=== PATIENT | female | born 1930 | race Caucasian/White ===

== ENCOUNTER → 2017-04-29 | Outpatient (CLI) | payer MEDICARE, BC ==
[~2017-04-29] MED LIST: CALCIUM + D3 E1 EACH PO; CELEBREX 200 M200 M1 PO; CEPHALEXIN 500500 M3 PO; CRESTOR10 MG PO; D3 + K2 DOTS 11 EACH PO; DILTIAZEM 24HR180 M3 PO; ELIQUIS2.5 MG PO; ESTRADIOL 1 MG T1 M1 PO; FISH OIL 1,001000 M2 PO; FOLBIC RF TABL1 EACH PO; LASIX 20 MG TAB20 MG PO; LEVOTHYROXINE 0.1 MG PO; LISINOPRIL10 MG PO; METFORMIN HCL500 MG PO; METOPROLOL SUCC25 M1 PO; PRILOSEC OTC20 MG PO
== END ==
LOC: M.RAD 09:33
DX: J15.8 Pneumonia due to other specified bacteria (principal); M47.894 Other spondylosis, thoracic region; J98.11 Atelectasis

== ENCOUNTER 2019-01-29 12:04 | Inpatient (IN) | payer MEDICARE, BC ==
[~2019-01-29] VITALS: Ht 170.2 cm; Wt 96.4 kg
[~2019-01-29 12:04] MED LIST changes: -LEVOTHYROXINE 0.1 MG PO; +SYNTHROID100 MC1 PO
[2019-01-29 12:05] VITALS: BP 136/79
[2019-01-29 12:38] LABS: ANION GAP 7 mmol/L (7-16); BUN 24 mg/dL (7-18); CALCIUM 8.9 mg/dL (8.5-10.1); CHLORIDE 101 mmol/L (98-107); CO2 29 mmol/L (21-32); GLUCOSE 224 mg/dL (70-99); POTASSIUM 4.1 mmol/L (3.5-5.1); SODIUM 137 mmol/L (136-145)
[2019-01-29 12:39] LABS: HEMATOCRIT 39.1 % (37.0-47.0); INR 1.1; MCH 31.3 pg (26.0-34.0); MCHC 33.2 g/dL (28.0-37.0); MCV 94.1 fL (80.0-100.0); NUCLEATED RBCS 0 /100WBC; PLATELET COUNT* 263 thou/uL (150-400); RBC 4.16 mil/uL (4.20-5.00); RDW-CV 13.4 % (10.5-14.5); WBC 13.3 thou/uL (4.0-11.0)
[2019-01-29 12:48] LABS: ALBUMIN 3.2 g/dL (3.4-5.0); ALKALINE PHOSPHATASE 141 U/L (46-116); NT-PRO BRAIN NAT PEPTIDE 1585 pg/mL (<300); SGOT 223 U/L (15-37); SGPT 88 U/L (30-65); TOTAL BILIRUBIN 1.9 mg/dL (<0.1-1.0); TOTAL PROTEIN 6.5 g/dL (6.4-8.2); TROPONIN-I LEVEL <0.06 ng/mL (<0.06)
[2019-01-29 14:14] LABS: LIPASE 8052 U/L (73-393)
[2019-01-29 14:28] LABS: ABSOLUTE LYMPHOCYTES 1.3 thou/uL (0.8-5.3); ATYPICAL LYMPHS 3 %; PLATELET ESTIMATE ADEQUATE
--- NOTE | 2019-01-29 16:27 | EKG ---
[place] [address] ELECTROCARDIOGRAM REPORT Name: COPEFLORY Room: [place] [address] [facility].#: [id number] Admission: 01/29/19 Attend Phys: Julia Zayas MD Discharge: Date of : [birth year] Report #: [id number] THIS REPORT FOR: //name// [facility] ED Test Date: 2019-01-29 Test Time: 12:07:17 Pat Name: FLORY COPE Department: Room: [facility] Gender: F Test Lead: EV : 1930 Requested By: Cordelia Carlton Order Number: [id number] MD: Evans Kahn Measurements Intervals [place] Rate: 79 P: WI: QRS: -26 QRSD: 111 T: 77 QT: 417 QTc: 479 Interpretive Statements Atrial fibrillation Incomplete RBBB and LAFB Low voltage, precordial leads Anteroseptal infarct, age indeterminate Nonspecific T abnormalities, lateral leads Compared to ECG 05/28/2016 15:57:24 Incomplete right bundle-branch block now present Right bundle-branch block now present Low QRS voltage now present T-wave abnormality now present Myocardial infarct finding still present Electronically Signed On 01-29-2019 16:27:40 CDT by Evans Kahn [email or web address] <ELECTRONICALLY SIGNED> By: Evans Kahn MD, [facility] 01/29/19 1627 06 06 Evans Kahn MD, [facility] /EPI
[2019-01-29 17:10] VITALS: BP 119/93
[2019-01-29 19:45] VITALS: BP 95/48
[2019-01-30] VITALS: BP 94/45
[2019-01-30] MEDS ORDERED: LIPITOR10 MG PO (00:47)
[2019-01-30] MEDS ORDERED: LUMIGAN2.5 M1 OPHTHALMIC (00:51)
[2019-01-30] MEDS ORDERED: PRESERVISION A1 EAC2 PO (00:53)
[2019-01-30 04:00] VITALS: BP 91/44
[2019-01-30 05:09] LABS: HEMATOCRIT 39.3 % (37.0-47.0); HEMOGLOBIN 12.9 gm/dL (12.0-15.0); MCH 30.9 pg (26.0-34.0); MCHC 32.7 g/dL (28.0-37.0); MCV 94.5 fL (80.0-100.0); MPV 8.7 fl. (7.2-11.1); RBC 4.16 mil/uL (4.20-5.00); WBC 20.2 thou/uL (4.0-11.0)
[2019-01-30 05:34] LABS: ALBUMIN 2.7 g/dL (3.4-5.0); CALCIUM 7.9 mg/dL (8.5-10.1); CREATININE 1.1 mg/dL (0.6-1.3); MAGNESIUM 1.6 mg/dL (1.8-2.4); TOTAL BILIRUBIN 5.3 mg/dL (<0.1-1.0)
[2019-01-30 05:54] LABS: TOTAL PROTEIN 5.7 g/dL (6.4-8.2)
--- NOTE | 2019-01-30 06:12 | NUR ---
PT SLEPT MOST OF SHIFT. ASSESSMENT DOCUMENTED. MEDS GIVEN PER E-JUN. PT ORIENTED TO SELF ONLY THIS SHIFT. IV PATENT, FLUIDS INFUSING. NO REPORTS OF PAIN THIS SHIFT. BLADDER SCANNER READING 441 POST VOID. PT HAD LARGE BM THIS SHIFT. WILL STRAIGHT CATH THIS SHIFT. WILL CONTINUE WITH PLAN OF CARE.
[2019-01-30 08:00] VITALS: BP 103/59
[2019-01-30 12:22] VITALS: BP 85/34
--- NOTE | 2019-01-30 14:03 | NUR ---
Pt out of room when CM went to assess. Spoke with Dr earlier, Pt to have MRCP and abd u/s today and an ERCP is scheduled. Surgery following. CM to f/u later
[2019-01-30 16:09] VITALS: BP 107/62
--- NOTE | 2019-01-30 18:58 | NUR ---
ASSUSSMED CARE OF PT APPROX 0730. REASSESSMENT COMPLETED CHARTED. MEDICATIONS GIVEN CHARTED. DISCUSSED CARE WITH PT, NEEDS REINFORCEMENT. PT OFF UNIT FOR MOST OF THIS SHIFT AT PROCEDURES. PT BACK TO UNIT THIS AFTERNOON. PT SLEPT FOR MOST OF THE AFTERNOON. PT AROUSED TO VOICE AND TOUCH. DISCUSSED CARE WITH PTS SON. PT UP TO BEDSIDE CAMODE WITH 2 PERSON ASSIST. SAFTEY PRECAUTIONS IN PLACE. CALL LIGHT WITHIN REACH. HOURLY ROUNED FOR PT SAFTEY.
[2019-01-30 20:50] VITALS: BP 82/40
[2019-01-31 00:18] VITALS: BP 97/56
[2019-01-31 04:29] VITALS: BP 87/50
--- NOTE | 2019-01-31 04:58 | NUR ---
PT SLEPT MOST OF SHIFT. ASSESSMENT DOCUMENTED. MEDS GIVEN PER E-MAR. IV PATENT, FLUIDS INFUSING. DR NOTIFIED OF PATIENTS BLOOD PRESSURE BEING LOW, BOLUS GIVEN. PT UP TO BSC THIS SHIFT WITH MINIMAL OUTPUT. NO REPORTS OF PAIN OR NAUSEA. PT REPOSITIONED THROUGH THE NIGHT. WILL CONTINUE WITH PLAN OF CARE.
[2019-01-31 05:06] LABS: HEMATOCRIT 34.8 % (37.0-47.0); HEMOGLOBIN 11.5 gm/dL (12.0-15.0); MCH 31.3 pg (26.0-34.0); MCHC 33.1 g/dL (28.0-37.0); MCV 94.5 fL (80.0-100.0); MPV 8.8 fl. (7.2-11.1); RBC 3.68 mil/uL (4.20-5.00); RDW-CV 14.1 % (10.5-14.5)
[2019-01-31 05:31] LABS: ALBUMIN 2.3 g/dL (3.4-5.0); CREATININE 1.4 mg/dL (0.6-1.3); MAGNESIUM 2.6 mg/dL (1.8-2.4); PHOSPHORUS* 3.4 mg/dL (2.5-4.9); POTASSIUM 3.5 mmol/L (3.5-5.1); TOTAL BILIRUBIN 4.6 mg/dL (<0.1-1.0); TOTAL PROTEIN 5.2 g/dL (6.4-8.2)
[2019-01-31 07:55] VITALS: BP 94/52
[2019-01-31 10:40] VITALS: BP 127/102
--- NOTE | 2019-01-31 10:41 | NUR ---
Pt is A&O. [place]AP[place]. Resides at home with her son. Son completes IADLs. Pt states that she has a lady that comes in to assist with bathing and grooming. Pt has a walker and cane that she uses for mobility, states that she has a wc, but does not use it. No home o2. Hx of HH. No hx of SNF. Pt scheduled to have a lap jaquelin tomorrow. Pt hopes to return home at [place]. Following.
--- NOTE | 2019-01-31 11:21 | NUR ---
ASSUMED CARE OF PATIENT THIS AM AT 0730. PATIENT IS ALERT AND ORIEMTED X 4. SHE DENIES PAIN THIS AM. TELE SHOWS AFIB. SURGERY IN TO ROUND. PLANS SURGERY IN THE AM. PT IN TO WORK WITH PATIENT. PATIENT ASSISTED UP TO THE CHAIR. PATIENT ASSISTED WITH ADLS NEEDED. WILL CONTINUE TO MONITOR.
--- NOTE | 2019-01-31 14:19 | NUR ---
I HAVE REVIEWED THE STUDENT'S CHARTING.
[2019-01-31 15:36] VITALS: BP 88/43
[2019-02-01] VITALS: BP 90/46
[2019-02-01 04:00] VITALS: BP 89/47
--- NOTE | 2019-02-01 05:46 | NUR ---
PT SLEPT MOST OF SHIFT. ASSESSMENT DOCUMENTED. MEDS GIVEN PER -JUN. IV'S PATENT, FLUIDS INFUSING. DR NOTIFIED OF PTS BLOOD PRESSURE AND INCREASING SOA. ORDERS RECIEVED. ORDERS VERIFIED. IV LASIXS AND STERIODS GIVEN WITH NO RELIEF. PT NOT VOIDING MORE THAN 50ML AT A TIME THIS SHIFT. BLADDER SCANNER READING NO MORE THAN 305 POST VOID. NO REPORTS OF PAIN OR NAUSEA THIS SHIFT. PT REMAINED NPO AFTER MIDNIGHT. WILL CONTINUE WITH PLAN OF CARE.
[2019-02-01 06:43] LABS: HEMATOCRIT 33.5 % (37.0-47.0); MCH 31.1 pg (26.0-34.0); MCV 94.4 fL (80.0-100.0); MPV 9.7 fl. (7.2-11.1); RBC 3.54 mil/uL (4.20-5.00); RDW-CV 14.3 % (10.5-14.5); WBC 13.5 thou/uL (4.0-11.0)
[2019-02-01 06:53] LABS: ALBUMIN 2.3 g/dL (3.4-5.0); CALCIUM 7.9 mg/dL (8.5-10.1); MAGNESIUM 2.6 mg/dL (1.8-2.4); TOTAL BILIRUBIN 3.2 mg/dL (<0.1-1.0); TOTAL PROTEIN 5.9 g/dL (6.4-8.2)
[2019-02-01 06:55] LABS: BE -7.9 mmol/L (-2 to +3); PCO2 44.5 mmHg (35.0-45.0); PO2 81.9 mmHg (75.0-100.0)
[2019-02-01 06:56] LABS: pH 7.249 (7.340-7.450)
[2019-02-01 07:30] VITALS: BP 121/49; BP 122/52
[2019-02-01 09:13] VITALS: BP 89/47
[2019-02-01 14:00] VITALS: BP 127/61
--- NOTE | 2019-02-01 19:17 | CON ---
[address] [address] CONSULTATION Name: FLORY COPE Room: [address] IN .R.#: [id number] Admission: 01/29/19 Attend Phys: Julia Zayas MD Discharge: Date of : [birth year] Report #: [id number] THIS REPORT FOR: //name// CC: Donald Zayas DATE OF SERVICE: 01/30/2019 HISTORY OF PRESENT ILLNESS: This is a pleasant 88-year-old female with past medical history significant for atrial fibrillation, hypertension, hypothyroidism and hyperlipidemia, who is presenting for evaluation of epigastric abdominal pain. The patient reports the abdominal pain started about 2 days back and progressively got worse, which prompted her hospital visit. The patient reports it is localized, nonradiating, associated with nausea and vomiting. The patient also reports subjective sensation of fever and chills. Although, she does report similar pain in the past, she reports it was only episodic and not this severe. PAST MEDICAL HISTORY: Atrial fibrillation, hypertension, diabetes, hyperlipidemia. PAST SURGICAL HISTORY: The patient had bilateral knee replacement, bilateral hip replacement, bladder sling surgery. SOCIAL HISTORY: The patient denies smoking, alcohol or recreational drug use. FAMILY HISTORY: No family history of colorectal cancer or Willis-related neoplasia. REVIEW OF SYSTEMS: A comprehensive 10-point review of systems is negative except for what was mentioned in the HPI. PHYSICAL EXAMINATION: VITAL SIGNS: Temperature 36.8, pulse rate 93, pulse ox 100% on room air, and blood pressure 85/34. GENERAL: The patient is alert, awake, and oriented x 3. HEENT: Pupils are equal, round, reactive to light and accommodation. Mucous membranes are moist. There is no congestion. LUNGS: Clear to auscultation bilaterally. CARDIOVASCULAR: Rate and rhythm regular, S1, S2 present. ABDOMEN: Soft. Tenderness is located in the epigastric right upper quadrant region. No guarding or rigidity. EXTREMITIES: Warm, well perfused. There is no edema. LABORATORY DATA: Hemoglobin 12.9, hematocrit 39.3, WBC count 20.2, platelet count 199. Sodium 140, potassium 4.0, chloride 106, bicarbonate 21, BUN 26, [place] [address] CONSULTATION Name: ARPIT COPEJEY Singh Room: [address] IN [facility]#: [id number] Admission: 01/29/19 Attend Phys: Julia Zayas MD Discharge: Date of : [birth year] Report #: [id number] creatinine 1.1, total bilirubin 5.3, AST 617, ALT 433, alkaline phosphatase 150, lipase 5498. ASSESSMENT AND PLAN: Pleasant 88-year-old female with history outlined above, presenting with acute pancreatitis, acute cholecystitis secondary to CBD stone and gallstone disease. I would recommend placing the patient on Zosyn at least for a week. We will proceed with ERCP and sphincterotomy, stone extraction. I would recommend increasing the patient's fluid rate to at least 200 mL per hour as her creatinine and BUN are increasing despite fluid intake and this predicts increased risk for necrotizing pancreatitis. Further recommendations will be based on the results of the ERCP. <ELECTRONICALLY SIGNED> By: Neo Hudson MD 02/01/19 1917 1251 1411Neo Hudson MD /nt
[2019-02-01 20:00] VITALS: BP 111/60
[2019-02-02 00:23] VITALS: BP 100/43
[2019-02-02 04:18] VITALS: BP 96/57
[2019-02-02 04:29] LABS: HEMATOCRIT 31.7 % (37.0-47.0); HEMOGLOBIN 10.3 gm/dL (12.0-15.0); MCH 30.9 pg (26.0-34.0); MCHC 32.5 g/dL (28.0-37.0); MCV 94.9 fL (80.0-100.0); MPV 8.8 fl. (7.2-11.1); RBC 3.34 mil/uL (4.20-5.00); RDW-CV 14.4 % (10.5-14.5); WBC 11.3 thou/uL (4.0-11.0)
[2019-02-02 04:43] LABS: ALBUMIN 1.9 g/dL (3.4-5.0); CALCIUM 7.9 mg/dL (8.5-10.1); CREATININE 2.9 mg/dL (0.6-1.3); MAGNESIUM 2.6 mg/dL (1.8-2.4); POTASSIUM 3.9 mmol/L (3.5-5.1); TOTAL BILIRUBIN 1.3 mg/dL (<0.1-1.0); TOTAL PROTEIN 5.4 g/dL (6.4-8.2)
[2019-02-02 08:00] VITALS: BP 89/47
--- NOTE | 2019-02-02 11:36 | NUR ---
Surgery yesterday, therapies to be reordered. Pt may need SNF at dc. Anticipate dc within the next few days. CM to speak with family post therapy evals to determine dc needs.
[2019-02-02 11:49] LABS: URINE BILIRUBIN NEGATIVE (Negative); URINE BLOOD 1+ (Negative); URINE CLARITY CLEAR; URINE COLOR YELLOW; URINE GLUCOSE-RANDOM NEGATIVE (Negative); URINE KETONES NEGATIVE (Negative); URINE LEUKOCYTES NEGATIVE (Negative); URINE NITRITE NEGATIVE (Negative); URINE PROTEIN TRACE (Negative); URINE UROBILINOGEN 0.2 E.U./dl (0.2-1.0)
[2019-02-02 11:59] LABS: BACTERIA 1-9 Few /HPF (None Seen); CASTS None Seen /LPF (None Seen); MUCUS None Seen strn/LPF (None Seen); SQUAMOUS NONE SEEN /LPF (0-3); URINE RBC 0-2 Rare /HPF (0-2); URINE WBC None Seen /HPF (0-5)
[2019-02-02 12:00] VITALS: BP 114/54
[2019-02-02 12:00] LABS: AMORPHOUS URATES Few /LPF (None Seen)
[2019-02-02 16:00] VITALS: BP 82/43
--- NOTE | 2019-02-02 17:57 | NUR ---
PATINET RESTING IN BED IN ROOM. BLOOD PRESSURE WAS LOWER TODAY BUT PATISANTOS WAS ASSYMPTOMATIC. NEPHRO ADDED ALBUMIN TO HER MAR. CLOSE ASSESSMENT OF KIDNEY FUNCTION. POLLARD TO DRAIN WITH AVERAGE OUTPUT OF 100 ML/HR. HOURLY ROUNDING COMPLETED FOR PATIET SAFETY.
[2019-02-02 19:40] VITALS: BP 126/61
[2019-02-03] VITALS: BP 141/70
[2019-02-03 04:00] VITALS: BP 136/82
[2019-02-03 04:18] LABS: HEMATOCRIT 31.4 % (37.0-47.0); HEMOGLOBIN 10.5 gm/dL (12.0-15.0); MCH 31.3 pg (26.0-34.0); MCHC 33.3 g/dL (28.0-37.0); MCV 93.7 fL (80.0-100.0); MPV 8.3 fl. (7.2-11.1); RBC 3.35 mil/uL (4.20-5.00); RDW-CV 14.5 % (10.5-14.5)
[2019-02-03 04:26] LABS: ALBUMIN 2.2 g/dL (3.4-5.0); CALCIUM 7.4 mg/dL (8.5-10.1); CREATININE 3.8 mg/dL (0.6-1.3); MAGNESIUM 2.6 mg/dL (1.8-2.4); POTASSIUM 4.1 mmol/L (3.5-5.1); TOTAL BILIRUBIN 1.2 mg/dL (<0.1-1.0); TOTAL PROTEIN 5.4 g/dL (6.4-8.2)
--- NOTE | 2019-02-03 06:52 | NUR ---
NO ACUTE CHANGES DURING SHIFT. PT REMAINS ON O2 WITH CONTINUOUS SAT MONITOR. PT GIVEN 10 MG OXYCODONE X1 DURING SHIFT FOR REPORT OF INCISION PAIN. VITAL SIGNS WITHIN NORMAL LIMITS THROUGHOUT NIGHT, WILL CONTINUE PLAN OF CARE.
[2019-02-03 08:00] VITALS: BP 106/53
--- NOTE | 2019-02-03 09:53 | OP ---
[address] [address] OPERATIVE REPORT Name: FLORY COPE Room: [address] IN .R.#: [id number] Admission: 01/29/19 Attend Phys: Julia Zayas MD Discharge: Date of : [birth year]/15[birth year] Report #: [id number] THIS REPORT FOR: //name// CC: Donald Zayas DATE OF SERVICE: 02/01/2019 PREOPERATIVE DIAGNOSES: Acute cholecystitis with cholelithiasis with obstruction, status post ERCP with a stent. POSTOPERATIVE DIAGNOSES: Acute cholecystitis with cholelithiasis with obstruction, status post ERCP with a stent with mesh at the midline and diffuse abdominal adhesions. FINDINGS: The patient had an old midline incision which she could not tell us the purpose of. There was a question of whether she had had a previous mesh placed. We did identify mesh at the midline incision. There were adhesions extending from the falciform to the pelvis and from the right to the left gutter. Gallbladder itself was quite distended with stones and multiple dense overlying adhesions. SURGEON: Jenna Mueller DO COSURGEON: Eleuterio Quintero, PGY-3 MOLDING PROCESS TECHNICIAN: MS Apryl3 PROCEDURE PERFORMED: Laparoscopic cholecystectomy converted to open with lysis of adhesions greater than 30 minutes. ANESTHESIA: General endotracheal and local. ESTIMATED BLOOD LOSS: 100 mL. DRAINS: 15-Barbadian JARET drain in the right upper quadrant and a Garrido catheter. SPECIMENS: Gallbladder. COMPLICATIONS: None. CONDITION: Stable. DISPOSITION: PACU to the floor. HISTORY OF PRESENT ILLNESS: The patient is a very pleasant 88[place] [address] OPERATIVE REPORT Name: BRANT COPEJarret Singh Room: [address] IN [facility]#: [id number] Admission: 01/29/19 Attend Phys: Julia Zayas MD Discharge: Date of : [birth year]/15/[birth year] Report #: [id number] who is fairly severely demented, who presented to the ER with a complaint of abdominal pain, nausea, and vomiting. She was found to have an elevated white count and severely elevated liver enzymes. CT scan and ultrasound completed in the ER indicated acute cholecystitis with cholelithiasis and choledocholithiasis. MRCP confirmed the common bile duct stones. She was then taken to the operating room with Dr. Hudson for an ERCP with stone removal and stent placement. Unfortunately, he was unable to remove all of the stones, but again the stent was placed with good bile flow. Her blood work did improve. She was then consented for surgery for removal of the gallbladder. Again, she is somewhat demented, so we did discuss the surgery with her and with her son who agreed to proceed. Risks of the surgery were discussed include bleeding, infection, pain, scar formation, injury to bowel, liver or bile duct, hernia at the incision sites, need for an open procedure, and risks of general anesthesia. Again, the patient has a midline incision which she could not tell us the history of. So, we did stress that she may need an open procedure. The patient and son understood these risks and elected to proceed. DESCRIPTION OF PROCEDURE: The patient was brought to the operating room. She was laid supine on the operating room table. SCDs were placed on bilateral lower extremities. The patient was already on Zosyn in the perioperative period. General endotracheal anesthesia was induced by Anesthesia without difficulty. Garrido catheter was placed utilizing sterile technique by nursing staff. Abdomen was prepped and draped in a standard sterile fashion. Timeout was performed to verify the patient and procedure. A 10 mL of 0.5% Marcaine were injected in the very superior edge of her old midline incision. Old midline incision was opened with 11 blade. Cautery was used for hemostasis. S retractors were used to visualize fascia. Fascia was grasped and elevated between 2 Kochers. Fascia was incised using cautery. At this point, the upper edge of the mesh could be visualized, but again we were just at the upper edge of it, so I was able to sneak past the upper edge and puncture through the peritoneum using a Eloisa clamp. Finger was introduced into the abdomen to assure that there were no maira-incisional adhesions. Unfortunately, we identified multiple dense adhesions in all directions. The Pratibha trocar was introduced and we did attempt to insufflate and camera was introduced, but no plane could be identified. At this point, it was decided to move to an open procedure. The fascial edges of this incision were marked using 2 stitches of 0 Vicryl with Eloisa clamps, and we then turned our attention to the right upper quadrant. 10 mL of 0.5% Marcaine were injected in the area of planned incision. A Priscilla incision was then made with a 10 blade. Cautery was used for hemostasis. Cautery was then used to dissect down through the fatty tissues. Cautery was then used to incise the anterior fascia. Muscle fibers were then gently transected utilizing the cautery. Posterior fascia and peritoneum were then also transected using the cautery. Multiple dense adhesions were then again encountered in the abdomen. These were able to be mobilized inferiorly. The patient was placed head up and tilted left side down. Liver edge was finally able to be visualized and was gently elevated. Colon was adherent up [facility] [address] [place] [address] OPERATIVE REPORT Name: FLORY COPE Room: [address] IN M.R.#: [id number] Admission: 01/29/19 Attend Phys: Julia Zayas MD Discharge: Date of : [birth year]/15/[birth year] Report #: [id number] over the edge of the gallbladder. It was gently mobilized down towards the pelvis and then we were finally able to visualize the gallbladder. Gallbladder was gently elevated, and the adhesions between the gallbladder and the colon were gently lysed using a combination of blunt and cautery dissection until we reached the triangle of Calot. Cholecystectomy was then performed in a dome down fashion. Gentle retraction was placed on the gallbladder. Wall cautery was used to transect the gallbladder from the liver bed. The liver was quite friable and did easily bleed, but we were able to proceed without issue. Once we reached the triangle of Calot, Calot node was easily identified. Small blood vessels going to Calot node was doubly clipped and ligated. The node was gently mobilized towards the duodenum. Cystic duct and cystic artery were then both easily visualized. They were both circumferentially dissected free using a Eloisa clamp. Both were then doubly ligated using a 0 silk suture and they were transected using Metzenbaums. Specimen was then handed off. Liver bed and right upper quadrant was then copiously irrigated until clear. Liver bed was inspected and appeared to be hemostatic. Our duct and artery also appeared to be hemostatic. There was no bleeding or leakage from the area of our 0 silk sutures. We did have an area just lateral where there was a small tear in the liver. This was controlled with cautery and a small piece of Surgicel. A 15-Barbadian JARET drain was then brought onto the field and was brought out of the right upper quadrant and laid in the Morison pouch and in the liver bed. The patient was then returned to supine. Any remaining fluid in the right upper quadrant was suctioned away. Her abdomen was then closed in multiple layers. Peritoneum was closed using a running 3-0 Vicryl. Anterior fascia was closed using a running 2-0 PDS. Subcutaneous tissues were closed in a layered fashion using deep and superficial stitches of 3-0 Vicryl in inverted interrupted fashion. Skin wound was closed with jose. Drain was sutured into place using a 3-0 nylon. We returned our attention to our Pratibha port. Our previously placed 0 Vicryl stitches were tied. One additional 0 Vicryl stitch was placed in between these 2 stitches with excellent approximation of the fascia. This wound was then also closed in a layered fashion using deep and superficial stitches of 3-0 Vicryl in inverted interrupted fashion. Skin wound was closed with jose. All wounds were then cleansed and covered. A total of 30 mL of 0.5% Marcaine were used to anesthetize the wounds. Dressings consisted of 4 x 4's, ABDs, Medipore tape, and a Tegaderm over the drain site. The patient was then allowed to awake from anesthesia and was extubated and transported to the recovery room with no further difficulties. Counts were correct x 2 at the conclusion of the case. Abdominal binder was placed in the OR. <ELECTRONICALLY SIGNED> By: Jenna Mueller DO 02/03/19 0953 1316 [id number] Mueller DO /nt
[2019-02-03 16:00] VITALS: BP 101/48
--- NOTE | 2019-02-03 17:52 | NUR ---
PT VSS, AFIB ON TELE, ORIENTED TO SELF WITH BASELINE CONFUSION, PT HARD OF HEARING, PT IS HIGH FALL RISK, POSSESSIONS AND CALL LIGHT WITHIN REACH. HOURLY ROUNDING PERFORMED. NC@2L.
[2019-02-03 20:42] VITALS: BP 93/45
[2019-02-03 23:41] VITALS: BP 101/52
[2019-02-04 04:00] VITALS: BP 106/44
[2019-02-04 04:25] LABS: HEMATOCRIT 30.1 % (37.0-47.0); HEMOGLOBIN 10.1 gm/dL (12.0-15.0); MCH 31.7 pg (26.0-34.0); MCHC 33.5 g/dL (28.0-37.0); MCV 94.4 fL (80.0-100.0); MPV 8.1 fl. (7.2-11.1); RBC 3.18 mil/uL (4.20-5.00); RDW-CV 14.5 % (10.5-14.5); WBC 10.8 thou/uL (4.0-11.0)
--- NOTE | 2019-02-04 04:30 | NUR ---
ASSUMED CARE OF PT 02/03/19 APPROX 1969, PT A&OX2, VSS, PT ON 2L NC, AFIB ON MONITOR, ASSESSMENTS AND HOURLY ROUNDINGS COMPLETED, PT TURNED Q2HR, ABD INCISIONS WITH STABLES INTACT WITH DRESSINGS C/D/I, NO PAIN REPORTED. WILL CONTINUE TO MONITOR.
[2019-02-04 04:55] LABS: ALBUMIN 2.6 g/dL (3.4-5.0); CALCIUM 8.1 mg/dL (8.5-10.1); MAGNESIUM 2.6 mg/dL (1.8-2.4); PHOSPHORUS* 6.5 mg/dL (2.5-4.9); POTASSIUM 4.8 mmol/L (3.5-5.1); TOTAL BILIRUBIN 0.9 mg/dL (<0.1-1.0); TOTAL PROTEIN 5.8 g/dL (6.4-8.2)
[2019-02-04 08:00] VITALS: BP 103/53
[2019-02-04 12:44] VITALS: BP 98/46
[2019-02-04 17:08] VITALS: BP 111/57
[2019-02-04 19:19] LABS: COMPLEMENT-C4 25 mg/dL (14-44)
[2019-02-04 20:42] VITALS: BP 121/52
--- NOTE | 2019-02-04 21:57 | NUR ---
PT ORIENTED TO SELF AND LOCATION. AFIB ON TELE MONITOR, PT IS IMMOBILE AND A Q2H TURN PT. PT IS TOTAL FEED, PT HAS GENERALIZED NON PITTING EDEMA ON UPPER EXTREMITIES. DR ADAME WAS CONCERNED IN THE AM ABOUT RENAL FUNCTION DUE TO LOW URINE OUTPUT AND ELEVATED BUN AND CREATININE LEVELS. DR ASKED RN TO CONTACT DPOA TO INQUIRE ABOUT POTENTIAL NECESSITY TO PERFORM DIALYSIS AND TO OBTAIN CONSENT IF IT WAS THEIR WISH. INFORMED DR ROGERS WHO TALKED TO DPOA AND DPOA GAVE CONSENT. PT LEVEL OF CONFUSION REMAINED CONSTANT THROUGHOUT THE DAY AND DID NOT WORSEN. DR. ADAME CALLED AROUND 6 PM TO INQUIRE ABOUT PT. INFORMED DR OF INTAKE, OUTPUT AND LEVEL OF CONFUSION. HOURLY ROUNDING PERFORMED. POSSESSION AND CALL LIGHT WITHIN REACH. CHECKED ON PT FREQUENTLY.
[2019-02-05] VITALS: BP 112/47
[2019-02-05 04:00] VITALS: BP 102/46
--- NOTE | 2019-02-05 04:42 | NUR ---
ASSUMED CARE OF PT 02/04/19 AT APPROX 1930, PT ORIENTED TO SELF ONLY, ON 2L NC WITH EXPIRATORY WHEEZES, PT TURNED Q2HR, FALL PRECAUTIONS MAINTAINED, ASSESSMENTS COMPLETED WITH NO ACUTE DECLINE IN CONDITION OVER THE SHIFT, URINE OUTPUT REMAINS VERY LOW SEE PCI, AM LAB PENDING, PER NEPHROLOGY NOTE - THEY WILL REASSESS TODAY FOR KIDNEY FX AND CHANGES IN PLAN OF CARE. WILL CONTINUE TO MONITOR.
[2019-02-05 04:58] LABS: CREATININE 5.8 mg/dL (0.6-1.3); POTASSIUM 5.2 mmol/L (3.5-5.1)
--- NOTE | 2019-02-05 07:01 | NUR ---
NOTIFIED NEPHROLOGY OF PT OVERNIGHT STATUS: URINE OUTPUT, INCREASED WHEEZING, INCREASE BUN AND LABORER GOLD LEAF. ORDERS RECEIVED. MESSAGE TO HOSPITALIST WITH UPDATES WELL, CALL BACK PENDING.
[2019-02-05 08:00] VITALS: BP 114/55
[2019-02-05 09:47] VITALS: BP 114/55
--- NOTE | 2019-02-05 15:26 | NUR ---
ASSUMED PT CARE REPORT RECEIVED FROM NURSE. PT IS AOX1 TO SELF. CONFUSED. VSS. ON 2 LNC. POLLARD PATENT. Q2 TURN. IR CONSULTED FOR TEMPORARY DIALYSIS LINE PLACEMENT. CONSENT FOR LINE PLACEMENT RECEIVED FROM PT'S SON TRENT.IV R IF LINE WAS PLACED IN. PT HAS POOR APPETITE AND DID NOT EAT LUNCH AT ALL. NO INSULIN GIVEN. HD NURSE CALLED AND STATES SHE WILL BE READY FOR PT AT 1700. WILL CONTINUE TO MONITOR PT
--- NOTE | 2019-02-05 15:44 | NUR ---
SW spoke with Dr Muniz about dc planning; pt not medically ready today, needing dialysis, dc planning for SNF. SW to continue to follow to discuss with family for preferences and send referrals as needed.
[2019-02-05 16:00] VITALS: BP 125/57
--- NOTE | 2019-02-05 19:18 | NUR ---
NEVER HEARD FROM DIALYSIS NURSE. DIALYSIS NURSE CALLED NO ANSWER. SAFETY IN PLACE. REPORT GIVEN TO NIGHT NURSE
[2019-02-05 20:00] VITALS: BP 107/49
[2019-02-06] VITALS: BP 103/58
[2019-02-06 04:00] VITALS: BP 139/69
[2019-02-06 05:06] LABS: HEMATOCRIT 31.5 % (37.0-47.0); HEMOGLOBIN 10.4 gm/dL (12.0-15.0); MCH 30.9 pg (26.0-34.0); MCV 93.5 fL (80.0-100.0); MPV 8.4 fl. (7.2-11.1); NUCLEATED RBCS 0 /100WBC; PLATELET COUNT* 175 thou/uL (150-400); RBC 3.37 mil/uL (4.20-5.00); RDW-CV 14.4 % (10.5-14.5); WBC 15.7 thou/uL (4.0-11.0)
[2019-02-06 05:18] LABS: ALBUMIN 2.6 g/dL (3.4-5.0); CALCIUM 8.2 mg/dL (8.5-10.1); CREATININE 5.4 mg/dL (0.6-1.3); PHOSPHORUS* 6.9 mg/dL (2.5-4.9); POTASSIUM 4.9 mmol/L (3.5-5.1)
[2019-02-06 05:27] LABS: CALCIUM 8.2 mg/dL (8.5-10.1); CREATININE 5.3 mg/dL (0.6-1.3); MAGNESIUM 2.4 mg/dL (1.8-2.4)
[2019-02-06 05:43] LABS: ABSOLUTE LYMPHOCYTES 0.6 thou/uL (0.8-5.3); ABSOLUTE MONOCYTES 0.2 thou/uL (0.0-1.2); ABSOLUTE NEUTROPHILS 14.9 thou/uL (1.6-8.1); ANISOCYTOSIS 1+; PLATELET ESTIMATE ADEQUATE; POIKILOCYTOSIS 1+
--- NOTE | 2019-02-06 06:08 | NUR ---
RECEIVED REPORT AND ASSUMED CARE AT 1900. VSS. CARDIAC MONITORING IN PLACE. ASSESSMENT COMPLETED CHARTED. PT TO DIALYSIS 750ML TAKEN OFF/ RETUNRED TO ROOM, BATH COMPLETED. DRESSING TO JARET DRAIN CHANGED. BED LOCKED IN LOWEST POSITION, CALL LIGHT WIHTIN REACH, BED ALARM ON. POSITION CHANGED EVERY TWO HOURS, HEELS OFF LOADED. HOURLY ROUNDING COMPLETED AND ALL NEEDS MET.
[2019-02-06 07:08] LABS: GLOBULIN TOTAL 2.6 g/dL (2.2-3.9); M-SPIKE Not Observed g/dL (Not Observed)
[2019-02-06 08:00] VITALS: BP 127/54
--- NOTE | 2019-02-06 11:29 | NUR ---
ASSUMED PT CARE REPORT RECEIVED FROM NURSE. PT IS AOX1 HARD OF HEARING. ON 4 L NC. VSS. PATIENT WORKED WITH OCCUPATIONAL THERAPIST IN ROOM. POOR APPETITE. ACCUCHECK. INSULIN GIVEN. PROTONIX NOT GIVEN YET DUE TO UNAVAILABILITY. PT LEFT FLOOR AT 0930 AM TO GO TO HEMODIALYSIS. PT DENIES PAIN. SCDS IN PLACE. JARET DRAIN AND POLLARD PATENT. RIGHT IJ IS PATENT. WILL CONTINUE TO MONITOR PT.
--- NOTE | 2019-02-06 12:06 | PATH ---
[address] [address] PATHOLOGY RPT PROCEDURE Name: FLORY COPE Room: [address] IN [facility]#: [id number] Admission: 01/29/19 Date of : [birth year] Discharge: Report #: [id number] Path Case #: [id number] [facility] Accession Number: [id number] . 01 Material submitted: . gallbladder - GALLBLADDER . 01 Clinical history: . Chronic cholecystitis, cholelithiasis . 02 Diagnosis: Gallbladder: - Severe chronic and acute cholecystitis with associated epithelial atypia, cholelithiasis, scant attached benign liver tissue, and with benign sentinel lymph node. (MARCUS:nataliya; 02/05/2019) MBR 02/05/2019 1736 Local . 02 Electronically signed: . Ranjan Devine MD, Pathologist NPI- [id number] . 01 Gross description: . Received in formalin labeled "Flory Cope, gallbladder," is an intact gallbladder measuring 9.1 x 5.1 x 4.2 cm in greatest dimensions. The serosal surface is largely edematous and dusky walters-harris in appearance, appearing partially disrupted with scant attached yellow adipose tissue. The suspected hepatic surface is inked black. A harris-brown possible lymph node is noted near the infundibulum, measuring 0.8 x 0.6 x 0.5 cm in greatest dimensions. Opening the specimen reveals a shaggy, dark green mucosa measuring 0.1 cm in thickness, with a gallbladder wall thickness of up to 0.8 cm. The outermost mucosal layer sheds readily upon sectioning. No polyps or nodules are identified grossly. Calculi are present within the specimen that are black and multifaceted in appearance, ranging from 0.6 to 1.1 cm in maximum dimension. Smaller, spherical pale yellow-harris possible calculi are also present, measuring 0.1 cm each in maximum dimension. Assistant Fitness Manager sections of the infundibulum, body and fundus are submitted in cassettes A1 and A2. The possible lymph node is trisected and submitted entirely in cassette A3. ([facility]; 02/02/2019) XDC/XDC 02/05/2019 1735 Local . 02 Pathologist provided ICD-10: K80.12 . 02 CPT . 370142 Specimen Comment: A courtesy [place] [address] PATHOLOGY RPT PROCEDURE Name: FLORY COPE Room: [address] IN ..#: [id number] Admission: 01/29/19 Date of : [birth year] Discharge: Report #: [id number] Path Case #: [id number] Specimen Comment: [phone], , . Specimen Comment: Report sent to ,DR GONSALES / DR WILDER Performed at: [address], [place], [place] [id number] MD Dc Henderson MD Phone: [phone] Performed at: 02 [facility] [address], [place] [id number] MD Ranjan Devine MD Phone: [phone]
--- NOTE | 2019-02-06 14:27 | NUR ---
SW called and spoke with pt son and dtr in law to discuss dc planning for whenever pt is medically ready; pt family preference would be for pt to be able to dc to [facility] inpt rehab. SW discussed possibility of SNF options needed as a back up plan in case pt not accepted to inpt rehab. SW to continue to follow to assist with safe dc planning.
[2019-02-06 15:55] VITALS: BP 128/65
[2019-02-06 20:00] VITALS: BP 136/59
[2019-02-07] VITALS: BP 127/63
[2019-02-07 04:00] VITALS: BP 130/70
--- NOTE | 2019-02-07 05:18 | NUR ---
ASSUMED CARE OF PT AFTER REPORT AT 1930. PT A&OX1. ONLY ORIENTED TO SELF. CONFUSED. PT ABLE TO ANSWER SIMPLE QUESTIONS OTHERWISE WORD SALAD. VSS. PHYSICAL ASSESSMENT COMPLETED AND CHARTED. PT ON O2 AT 2L NC. PT TRACING AFIB ON TELE. PT WITH POLLARD TO DEPENDENT DRAIN. PT DENIES ANY PAIN. PT ABLE TO SLEEP WELL ON BED. CALL LIGHT WITHIN REACH.
[2019-02-07 05:23] LABS: HEMATOCRIT 30.2 % (37.0-47.0); HEMOGLOBIN 10.2 gm/dL (12.0-15.0); MCH 31.2 pg (26.0-34.0); MCHC 33.7 g/dL (28.0-37.0); MCV 92.4 fL (80.0-100.0); MPV 8.2 fl. (7.2-11.1); RBC 3.26 mil/uL (4.20-5.00); RDW-CV 14.3 % (10.5-14.5); WBC 16.1 thou/uL (4.0-11.0)
[2019-02-07 05:35] LABS: ALBUMIN 2.2 g/dL (3.4-5.0); CALCIUM 8.2 mg/dL (8.5-10.1); CREATININE 4.8 mg/dL (0.6-1.3); PHOSPHORUS* 6.4 mg/dL (2.5-4.9); POTASSIUM 4.4 mmol/L (3.5-5.1)
[2019-02-07 08:13] VITALS: BP 143/76
[2019-02-07 09:10] LABS: GLOMERULR BASEM MEMBRN AB 3 units (0-20)
--- NOTE | 2019-02-07 09:40 | NUR ---
ASSUMED CARE OF PT THIS AM AROUND 0715- WATER PLANT PUMP OPERATOR IN PLACE ORDERED, TRACING A-FIB/RATE CONTROLLED- UPON ASSESSMENT PT NOTED TO BE RESTING IN BED, NOTED TO BE CHATTY THIS AM- PT A&O X1 WITH NOTED CONFUSSION- INCONTINENT OF BOWEL, POLLARD IN PLACE D/D CLEAR MARKOS URINE- Q2 HOUR TURNS NOTED, POLLARD LIFT INDICATED WITH TRANSFERS- EXPIRATORY WHEEZING NOTED, RESP EVEN AND UN-LABORED- VSS, O2 SAT 98% ON 2L VIA NC- ABD SOFT/OBESE/TENDER, BS ACTIVE- RIGHT UPPER ABD INCISSION NOTED WELL APPROXIMATRED WITH KORTNEY NOTED INTACT- MID LOWER ABD INCISSION NOTED WITH KORTNEY INTACT, MINIMAL LG DRAINAGE NOTED FROM SIGHT THIS AM, AREA CLEANED WITH WW, PAT DRY WITH 4X4 PLACED AND COVERED WITH ABD OVER AND SECURED WITH TAPE- ABD BINDER IN PLACE INDICATED-RLQ JARET DRAIN NOTED INTACT- +1 BLE EDEMA NOTED- FAIR PO INTAKE NOTED THIS WITH ASSISTANCE REQUIRED THIS AM, BS MONITORED ORDERED, SSI PRESCIBED- RIGHT IJ NOTED C/D/I- LEFT AC AND LEFT FA IV NOTED INTACT AND SL- PT UP TO BED SIDE RECLINER FOR SHORT BIT THIS AM WITH OT, THEN OFF UNIT AT 0945 FOR DIALYSIS- ALL NEEDS MET AT THIS TIME-WCTM
[2019-02-07 14:06] VITALS: BP 162/72
[2019-02-07 14:09] LABS: URINE PROTEIN (MG/DL) 74.9 mg/dL (Not Estab.)
[2019-02-07 16:00] VITALS: BP 147/73
--- NOTE | 2019-02-07 16:47 | NUR ---
PT CURRENLTY RESTING IN BED- DIRECTOR OF RETAIL IN PLACE ORDERED, TRACING A-FIB/RATE CONTROLLED- IV NOTED TO LEFT AC, LEFT FA INTACT- IV ABT GIVEN PRESCRIBED THIS SHIFT- RIGHT IJ TEMP DIALYSIS NOTED C/D/I- PT NOTED TO HAVE DIALYSIS THIS SHIFT WITH REPORTED 1.5L REMOVED- CT OF HEAD ORDERED AND COMPLETED THIS SHIFT PRESCIBED R/T AMS, NO ACUTE FINDINGS NOTED-[address] INDICATED- ASSISTANCE WITH MEALS NOTED- BS MONITORED INDICATED, SSI PRESCRIBED-FREQUENT CHECKS IN PLACE R/T SAFET/NEEDS- ALL NEEDS MET A THIS TIME-WCTM
[2019-02-07 18:09] LABS: ANA INTERPRETATION Negative (())
[2019-02-07 20:00] VITALS: BP 139/64
[2019-02-08] VITALS: BP 139/67
[2019-02-08 04:00] VITALS: BP 155/72
--- NOTE | 2019-02-08 04:46 | NUR ---
ASSUMED CARE OF PT AFTER REPORT AT 1930. PT A&OX1. ONLY ORIENTED TO SELF. PT KEEP SAYING RANDOM LETTERS AND NUMBERS. VSS. PHYSICAL ASSESSMENT COMPLETED AND CHARTED. PT ON O2 AT 2L NC. PT TRACING AFIB. PT DENIES ANY PAIN. PT WITH POLLARD TO DEPENDENT DRAIN. PT TURNED TO SIDES. CALL LIGHT WITHIN REACH.
[2019-02-08 04:59] LABS: HEMATOCRIT 30.5 % (37.0-47.0); HEMOGLOBIN 10.1 gm/dL (12.0-15.0); MCH 30.8 pg (26.0-34.0); MCHC 33.1 g/dL (28.0-37.0); MCV 92.8 fL (80.0-100.0); MPV 8.6 fl. (7.2-11.1); RBC 3.29 mil/uL (4.20-5.00); RDW-CV 14.3 % (10.5-14.5); WBC 17.9 thou/uL (4.0-11.0)
[2019-02-08 05:27] LABS: ALBUMIN 2.2 g/dL (3.4-5.0); CALCIUM 8.4 mg/dL (8.5-10.1); MAGNESIUM 2.1 mg/dL (1.8-2.4); POTASSIUM 4.2 mmol/L (3.5-5.1); TOTAL BILIRUBIN 0.8 mg/dL (<0.1-1.0); TOTAL PROTEIN 5.2 g/dL (6.4-8.2)
[2019-02-08 05:29] LABS: CREATININE 3.8 mg/dL (0.6-1.3)
[2019-02-08 07:21] VITALS: BP 146/70
[2019-02-08 07:40] LABS: HEPATITIS B SURFACE AG Negative (Negative)
--- NOTE | 2019-02-08 09:17 | NUR ---
ASSUMED CARE OF PT THIS AM AROUND 07- CREDIT CONTROL MANAGER IN PLACE ORDERED, TRACING A-FIB/RATE CONTROLLED- UPON ASSESSMENT PT NOTED TO BE RESTING IN BED, REPEATING SEQUENCE OF NUMBERS- PT A&O X1 WITH NOTED CONFUSION- INCONTINET OF BM POLLARD IN PLACE D/D- PT NOTED TO BE OLIGURIC AT THIS TIME- LOPEZ LIFT FOR TRANSFERS, Q [address] INDICATED- - EXPIRATORY WHEEZING NOTED, RESP EVEN AND UN-LABORED- VSS, O2 SAT 97% ON 2L VIA NC- ABD SOFT/OBESE/TENDER, BS ACTIVE- RIGHT ABD AND MIDLINE ABD INCISSION NOTED WELL APPROXIMATED WITH KORTNEY INTACT- DRESSING NOTED WITH SLIGHT VISIBLE DRAINGE TO LOWER MIDLINE INCISSION THIS AM- RUQ JARET DRAIN INTACT WITH NOTED SEROSANG DRAINAGE-FAIR PO INTAKE NOTED WITH ASSISTANCE REQUIRED WITH BREAKFAST THIS AM, BS MONITORED ORDRED, SSI PREWSCIBED-NEURO CONSULT NOTED THIS AM R/T AMS-LEFT AC AND LEFT FA IV NOTED INTACT AND SL- RIGHT IJ DIALYSIS PORT NOTED C/D/I- DIALYSIS ON HOLD AT THIS TIME, WILL REEVALUATE GEOVANNY- CALL LIGHT AND PERSONAL BELONGINGS WITH IN REACH- HOURLY ROUNDS IN PLACE R/T SAFETY/NEEDS- ALL NEEDS MET AT THIS TIME-WCTM
[2019-02-08 10:46] VITALS: BP 138/81
--- NOTE | 2019-02-08 12:10 | NUR ---
OT WILL D/C PT AT THIS TIME DUE TO STEADY DECLINE OF PT PHYSICALLY AND MEDICALLY. WILL RESUME ORDERS ONCE PT MORE BILLY AND ABLE TO PARTICPATE.
--- NOTE | 2019-02-08 15:15 | NUR ---
WOUND CARE NOTE: PATIENT'S RN REQUESTED ME TO ASSESS PATIENT FOR WOUND IN VAGINAL AREA. PATIENT PRESENTS WITH ECCHYMOSIS/DISCOLORATION TO THE LABIA MAJORA, MEDIAL ASPECT. UNSURE OF ETIOLOGY. RECOMMEND CLEANSING DAILY AND APPLY BARRIER OINTMENT NEEDED
--- NOTE | 2019-02-08 15:47 | NUR ---
Spoke with , Pt will not be ready to dc until at least early next week. Neuro consulted. ?LTAC ?outpt dialysis. Following
[2019-02-08 16:34] VITALS: BP 151/73
--- NOTE | 2019-02-08 16:54 | NUR ---
PT YANET RESTING IN BED- AUTOMOTIVE DIAGNOSTIC TECHNICIAN IN PLACE ORDERED, TRACING A-FIB/RATE CONTROLLED- IV TO LEFT AC AND LEFT FA INTACT AND SL-RIGHT IJ C/D/I- NEURO CONSULTED THIS SHIFT R/T AMS, HERE TO ASSESS WITH LABS ORDERED AND EEG- EEG COMPLETED THIS SHIFT, AWAITING RESULTS- GOOD PO INTAKE NOTED WITH MEALS WITH REQUIRED ASSISSTANCE, F/R OF [address] INDICATED-BS MONITORED ORDERED, SSI PRESCRIBED- PT WORKING WITH THERAPIES THIS SHIFT, UP TO SIDE OF BED ORDERED-DRESSING TO MID ABD INCISSION CHANGED X1 THIS SHIFT, PHYSICIAN HERE TO ABTAIN CULTURE OF SITE AND SENT TO LAB FOR TESTING ORDERED- JARET DRAIN IN PLACE WITH SEROSANG DRAINGE NOTED- POLLARD CLAMPED AT THIS TIME TO TRY AND OBTAIN UA R/T OLIGURIA- CALL LIGHT AND PERSONAL BELONGINGS WITH IN REACH- ALL NEEDS MET AT THIS TIME-WC
[2019-02-08 19:35] LABS: URINE BILIRUBIN NEGATIVE (Negative); URINE BLOOD 2+ (Negative); URINE CLARITY CLEAR; URINE COLOR YELLOW; URINE GLUCOSE-RANDOM NEGATIVE (Negative); URINE KETONES NEGATIVE (Negative); URINE LEUKOCYTES 2+ (Negative); URINE NITRITE NEGATIVE (Negative); URINE PROTEIN 1+ (Negative); URINE SPECIFIC GRAVITY 1.015 (1.005-1.030); URINE UROBILINOGEN 0.2 E.U./dl (0.2-1.0)
[2019-02-08 19:53] LABS: BACTERIA 1-9 Few /HPF (None Seen); CASTS None Seen /LPF (None Seen); CRYSTALS None Seen /LPF (None Seen); MUCUS 0-3 Light strn/LPF (None Seen); SQUAMOUS >10 Many /LPF (0-3); URINE RBC 0-2 Rare /HPF (0-2); URINE WBC 0-5 Rare /HPF (0-5)
[2019-02-08 20:00] VITALS: BP 133/79
[2019-02-09] VITALS: BP 134/82
[2019-02-09 04:00] VITALS: BP 146/78
[2019-02-09 04:18] LABS: HEMATOCRIT 30.4 % (37.0-47.0); MCH 30.7 pg (26.0-34.0); MCHC 32.8 g/dL (28.0-37.0); MCV 93.5 fL (80.0-100.0); MPV 8.7 fl. (7.2-11.1); RBC 3.26 mil/uL (4.20-5.00); RDW-CV 14.4 % (10.5-14.5); WBC 16.7 thou/uL (4.0-11.0)
[2019-02-09 04:39] LABS: CALCIUM 8.6 mg/dL (8.5-10.1); CREATININE 4.9 mg/dL (0.6-1.3); MAGNESIUM 2.1 mg/dL (1.8-2.4); PHOSPHORUS* 5.7 mg/dL (2.5-4.9); POTASSIUM 4.5 mmol/L (3.5-5.1)
--- NOTE | 2019-02-09 06:09 | NUR ---
ASSUMED CARE OF PT AFTER REPORT AT 1930. PT A&0X1. ONLY ORIENTED TO SELF. CONFUSED.ABLE TO ANSWER SIMPLE QUESTIONS. STILL VERBALIZING RANDOM LETTERS AND NUMBERS. VSS. PHYSICAL ASSESSMENT COMPLETED AND CHARTED. PT ON O2 AT 2L NC. PT TRACING AFIB ON TELE. PT DENIES ANY PAIN. PT TURNED TO SIDES. PT WITH POLLARD TO DEPENDENT DRAIN. CHANGED SURGICAL DRESSINGS. CALL LIGHT WITHIN REACH.
[2019-02-09 08:36] VITALS: BP 150/82
[2019-02-09 12:27] VITALS: BP 157/87
--- NOTE | 2019-02-09 13:03 | NUR ---
VSS, ASSUMED CARE IN THE AM, ASSESSMENT PERFORMED AND CHARTED, FALL PRECAUTIONS IN PLACE AND CALL LIGHT IN REACH, PT IS A&O1 CONFUSED, SHE IS ON 2L NC AND IS AFIB ON THE MONITOR, PT DENIES ANY PAIN, SHE HAS POLLARD IN PLACE BUT DRAING LITTLE, J-P IAIN ON RIGHT ABD IS IN PLACE AND DRAING SEROSANGUINOUS, PT IS A Q2 TURN, AND HER GOAL IS TO WORK WITH PT/OT AND GET DIALYSIS TODAY, WILL FOLLOW WITH PLAN OF CARE,
[2019-02-09 19:30] VITALS: BP 130/71
[2019-02-10] VITALS: BP 153/81
[2019-02-10 04:00] VITALS: BP 155/75
[2019-02-10 04:56] LABS: HEMATOCRIT 28.9 % (37.0-47.0); HEMOGLOBIN 9.6 gm/dL (12.0-15.0); MCH 30.7 pg (26.0-34.0); MCHC 33.1 g/dL (28.0-37.0); MCV 92.5 fL (80.0-100.0); MPV 8.5 fl. (7.2-11.1); RBC 3.12 mil/uL (4.20-5.00); RDW-CV 14.1 % (10.5-14.5); WBC 16.9 thou/uL (4.0-11.0)
[2019-02-10 05:17] LABS: CALCIUM 8.3 mg/dL (8.5-10.1); POTASSIUM 3.7 mmol/L (3.5-5.1)
[2019-02-10 05:19] LABS: CREATININE 3.3 mg/dL (0.6-1.3)
--- NOTE | 2019-02-10 06:50 | NUR ---
DRESSING CHANGED APPROX 0400, BANDAGE WAS SATURATED WITH BROWN LIQUID. PROVIDER MADE AWARE WHEN ROUNDED IN THE AM. VSS. SEE MAR. SEE CHARTING. PROGRESSING TOWARDS GOALS. FALL PRECAUTIONS IN PLACE. HOURLY ROUNDING FOR SAFETY.
[2019-02-10 11:29] VITALS: BP 127/60
--- NOTE | 2019-02-10 14:16 | NUR ---
Received telephone call from family members wanting to know about LTAC referral. Explained that LTAC would evaluate pt and decide if they are able to accept. Family wanted to know how many days she would be staying at LTAC and how many Medicare days she has left and how many she has used. Suggested that family call back and speak with unit CM on Tuesday re: plan of care and insurance benefits.
[2019-02-10 15:44] VITALS: BP 123/68
[2019-02-10 18:10] LABS: IgA 211 mg/dL (64-422); IgG 567 mg/dL (700-1600); IgM 28 mg/dL (26-217)
--- NOTE | 2019-02-10 18:32 | NUR ---
ASSUMED PT CARE AT 0700, PT ALERT TO SELF ONLY
--- NOTE | 2019-02-10 19:25 | CON ---
[address] [address] CONSULTATION Name: FLORY COPE Room: [address] IN M.R.#: [id number] Admission: 01/29/19 Attend Phys: Julia Zayas MD Discharge: Date of : [birth year] Report #: [id number] THIS REPORT FOR: //name// CC: Donald Zayas DATE OF SERVICE: 02/08/2019 HISTORY OF PRESENT ILLNESS: This is an 88-year-old female patient who was seen by me for altered mental status. The patient is unable to provide any history. No family member is here. It looks like the patient had acute renal failure and multiple GI problems. She is markedly confused. She talks irrelevantly. She does not follow commands. That makes it very difficult to examine her. She has been seen by multiple physicians. When she came in, she had some chest pain. She has been evaluated by GI. She underwent a cholecystectomy for cholecystitis. I do not know what the baseline is and we will try to reach the patient's family to determine that. REVIEW OF SYSTEMS: Indicates that she had multiple GI issues. She has been unresponsive. She has acute renal failure. She had an impacted urinary stone. I carried out the 14-point review of system from the record and this is the best I can get. PAST MEDICAL HISTORY: Unavailable in this patient. Family history is also unavailable. SOCIAL HISTORY: No family member is here. We will try to contact them. PHYSICAL EXAMINATION: Limited. She opens her eyes. She says a few words, but she is not able to communicate or follow any commands. She may be hard of hearing, but it is difficult for me to tell. Cranial nerve examination 2-12 was attempted. The patient is not able to cooperate. Neuromuscular examination for strength, sensation, reflexes and tone was attempted. The patient moves both sides, but that as all we can see at the moment reflexes are diminished, but symmetrically. There is no meningeal sign. I could not look at the patient's fundus. Cardiac examination indicates that she has atrial fibrillation. Respiratory examination is unremarkable. Blood pressure is 138/81, respirations 18, pulse is 109, temperature is 98. LABORATORY DATA: White count is 17.9. CT of the head was mostly unremarkable. IMPRESSION AND PLAN: This patient's finding is consistent with encephalopathy. It is difficult to tell in this patient because I do not know what the baseline is in this patient. We will try to reach the patient's family[place] [id number] CONSULTATION Name: ARPIT COPEJEY Singh Room: [address] IN [facility].#: [id number] Admission: 01/29/19 Attend Phys: Julia Zayas MD Discharge: Date of : [birth year] Report #: [id number] EEG done as the first test and then decide about further testing in this patient. We may have to do an MRI after talking to the family. <ELECTRONICALLY SIGNED> By: Shreyas Colvin MD 02/10/19 [id number] Colvin MD /nt
[2019-02-11] VITALS: BP 117/61
--- NOTE | 2019-02-11 03:39 | NUR ---
ASSUMED CARE OF PT AT 1900. PT IS ALERT AND ORIENTED X 2. VSS. PERRLA. NO COMPLAINTS OF PAIN. PT HAS SEROUS ANGIOUS DRAINAGE FROM JARET SITE ON LEFT LATERAL ABDOMAN. PT HAS DRAINAGE FROM HER MID ABDOMAN THAT IS VERY DARK. PT IS IN SINUS RYTHM ON THE TELEMETRY. PT IS RESTING COMFORTABLY IN BED. RESPIRATIONS ARE EVEN AND NONLABORED. WILL CONTINUE TO MONITOR PT.
[2019-02-11 04:00] VITALS: BP 117/59
[2019-02-11 05:10] LABS: HEMATOCRIT 28.7 % (37.0-47.0); HEMOGLOBIN 9.5 gm/dL (12.0-15.0); MCH 30.6 pg (26.0-34.0); MCV 92.9 fL (80.0-100.0); MPV 8.6 fl. (7.2-11.1); RBC 3.09 mil/uL (4.20-5.00); RDW-CV 14.1 % (10.5-14.5); WBC 15.2 thou/uL (4.0-11.0)
[2019-02-11 05:16] LABS: CALCIUM 8.1 mg/dL (8.5-10.1); CREATININE 4.3 mg/dL (0.6-1.3)
[2019-02-11 12:16] VITALS: BP 138/57
[2019-02-11 16:47] VITALS: BP 112/60
--- NOTE | 2019-02-11 18:35 | NUR ---
ASSUMED PT CARE AT 0700, PT A&O X2-3, UP WITH LOPEZ INTO CHAIR, 2LPM VIA NC, PT APPEARS MORE COHERENT THIS SHIFT, ABLE TO FEED SELF AND REQUESTING TO GET OUT OF BED INTO CHAIR. PT CONT ON 1200 FLUID RESTRICTION, POLLARD IN PLACE, PATENT AND DRAINING LIGHT YELLOW URINE WITH MINIMAL SEDIMENT. JARET DRAIN DRAINING SEROUS FLUID, COLOSTOMY BAG INTACT. HOURLY ROUNDING AND Q 2 HOUR TURNS COMPLETED.
[2019-02-11 20:00] VITALS: BP 124/52
[2019-02-12] VITALS: BP 121/60
[2019-02-12 04:00] VITALS: BP 137/67
[2019-02-12 04:51] LABS: HEMATOCRIT 29.5 % (37.0-47.0); HEMOGLOBIN 9.7 gm/dL (12.0-15.0); MCH 30.5 pg (26.0-34.0); MCHC 32.9 g/dL (28.0-37.0); MCV 92.6 fL (80.0-100.0); RBC 3.19 mil/uL (4.20-5.00); RDW-CV 14.4 % (10.5-14.5)
[2019-02-12 05:16] LABS: ALBUMIN 2.1 g/dL (3.4-5.0); CALCIUM 8.1 mg/dL (8.5-10.1); CREATININE 4.9 mg/dL (0.6-1.3); POTASSIUM 4.3 mmol/L (3.5-5.1); TOTAL BILIRUBIN 0.5 mg/dL (<0.1-1.0); TOTAL PROTEIN 5.4 g/dL (6.4-8.2)
--- NOTE | 2019-02-12 06:58 | NUR ---
ASSUMED CARE OF PT AFTER REPORT AT 1930. PT A&OX2. ORIENTED TO PERSON AND PLACE. PT ON O2 AT 2L NC. PT TRACING AFIB ON TELE. PT WITH POLLARD TO DEPENDNET DRAIN. PT WITH RIGHT IJ INTACT. PT WITH JARET DRAIN TO RIGHT UPPER QUADRANT ABDOMEN-MAINTAINED ON NEGATIVE PRESSURE. PT DENIES ANY PAIN OR DISCOMFORT. PT ABLE TO SLEEP WELL ON BED. CALL LIGHT WITHIN REACH.
[2019-02-12 08:00] VITALS: BP 128/65
--- NOTE | 2019-02-12 09:46 | CON ---
[address] [address] CONSULTATION Name: FLORY COPE Room: [address] IN .R.#: [id number] Admission: 01/29/19 Attend Phys: Julia Zayas MD Discharge: Date of : [birth year] Report #: [id number] THIS REPORT FOR: //name// CC: Donald Zayas DATE OF SERVICE: 02/09/2019 INFECTIOUS DISEASE CONSULTATION REASON FOR CONSULTATION: Leukocytosis, bile leak, abdominal surgical wound. HISTORY OF PRESENT ILLNESS: The patient 88-year-old white woman seen in Infectious Disease consultation because of leukocytosis. The patient is status post open cholecystectomy and extensive lysis of adhesions on 02/01/[address] Jenna Mueller. The patient apparently developed significant leukocytosis and a bile leak per abdominal wound today. The patient is rather hard of hearing and she might also have an underlying cognitive impairment consequently not very able to give a good medical information. DRUG ALLERGIES: None listed. MEDICATIONS: The patient is currently on treatment with Zosyn 3.375 grams IV every 12 hours. She is on methylprednisolone 40 mg IV daily, pantoprazole, sevelamer, subcutaneous heparin, oxycodone immediate release, levalbuterol, tamsulosin, levothyroxine, docusate, insulin lispro, conjugated estrogen, p.r.n. glucose, glucagon, phosphorus and potassium supplementation and magnesium supplementation per protocol, fentanyl p.r.n., ondansetron p.r.n., polyethylene glycol daily, Benadryl p.r.n., acetaminophen p.r.n. PAST MEDICAL HISTORY: Atrial fibrillation, chronic constipation, previous episodes of pancreatitis, recent open laparoscopy, lysis of adhesion and question mesh placement. Today, she is found to have bile leak per abdominal wound on lower abdomen. The abdominal wound in the subcostal region shows no bile leak. SOCIAL HISTORY: See H and P, old records. FAMILY HISTORY: See H and P, old records. REVIEW OF SYSTEMS: Unable to obtain. PHYSICAL EXAMINATION: GENERAL: Elderly, overweight woman, not toxic looking, hard of hearing. VITAL SIGNS: Presenting following vital signs: Temperature 97.6, pulse 101, respirations 16, BP 150/82. Height 5 feet 7 inches, weight [address] [place] [address] CONSULTATION Name: COPEFLORY Room: [address]#: [id number] Admission: 01/29/19 Attend Phys: Julia Zayas MD Discharge: Date of : [birth year] Report #: [id number] HEENT: Dry mucous membrane, otherwise normal. NECK: Supple. Right internal jugular dialysis catheter. LUNGS: Crackles at bases. HEART: S1, S2. No gallop or murmur. ABDOMEN: Right subcostal surgical wound with jose in place. In the midline in lower and mid abdomen, there is an open wound that is draining noah bile. Abdomen with bowel sounds present. PELVIC AND RECTAL: Deferred. EXTREMITIES: Trace pretibial edema. NEUROLOGIC: Grossly within normal limits. LABORATORY DATA: Sodium 140, potassium 4.5, BUN 66, creatinine 4.9, glucose 125. Lipase was 550 yesterday. Phosphorus 5.7, albumin 2.2. WBC 16,700, hemoglobin 10 g/dL, platelets 240,000. No differential available. Prealbumin 14 mg/dL. Hepatitis B surface antigen is negative. Hepatitis B surface antibody nonreactive and so is the anti-HB core antibody. The urinalysis revealed squamous epithelial cells and bacteriuria. ASSESSMENT: 1. Status post open cholecystectomy with evidence of bile leak per lower abdominal wound -- bile peritonitis. 2. Leukocytosis secondary to above. 3. Anemia. 4. Acute kidney injury. 5. Hypoalbuminemia, malnutrition. 6. Hard of hearing. 7. Possible cognitive impairment. SUGGESTIONS: Recommend ESR, CRP, procalcitonin, MRSA screen. Continue Zosyn, add Zyvox 600 mg IV every 12 hours. Obtain blood, urine and bile culture. Dr. Zayas, thank you for requesting my suggestions. <ELECTRONICALLY SIGNED> By: Dwaine Yusuf MD 02/12/19 0946 0905 [id number] Yusuf MD /thomas
[2019-02-12 11:54] VITALS: BP 106/56
--- NOTE | 2019-02-12 14:34 | NUR ---
Cm spoke with , Pt much improved today, continues to require luis alfredo lift for about of bed activities. CM updated son on POC. CM unsure if Pt will need [place]AC or SNF [place]. Per , anticipate that Pt will need outpt dialysis and will be here for a few more days. Following.
[2019-02-12 16:00] VITALS: BP 142/69
--- NOTE | 2019-02-12 18:47 | NUR ---
PT VSS, PT A&OX3, PT HAS CONFUSION. PT WAS DIALYZED TODAY AND 2OOO ML OF FLUID WERE PULLED. [facility] AND 1200ML FLUID RESTRICTION. PT IS TOO WEAK TO GET OUT OF BED, LIFT REQUIRED. PT HIGH FALL RISK, HOURLY ROUNDING PERFORMED, POSSESSIONS AND CALL LIGHT WITHIN REACH.
[2019-02-12 20:00] VITALS: BP 119/58
[2019-02-13] VITALS: BP 113/57
[2019-02-13 04:00] VITALS: BP 137/67
--- NOTE | 2019-02-13 05:34 | NUR ---
VITALS STABLE, AFEBRILE. A$OX1-2. VERY HARD OF HEARING. DENIES PAIN, SLEPT THROUGH THE NIGHT. AFIB ON THE MONITOR, ON 2L PER NC. 50 CC, SEROUS. BROWN DRAINAGE FROM WOUND DRAIN. VERY MINIMAL URINE OUTPUT PER CATHETER. Q2 TUTNS FOR SKIN INTEGRITY. CALL LIGHT WITHIN REACH.
[2019-02-13 06:37] LABS: HEMATOCRIT 29.4 % (37.0-47.0); HEMOGLOBIN 9.7 gm/dL (12.0-15.0); MCH 30.7 pg (26.0-34.0); MCV 93.3 fL (80.0-100.0); RBC 3.15 mil/uL (4.20-5.00); RDW-CV 14.1 % (10.5-14.5); WBC 11.9 thou/uL (4.0-11.0)
[2019-02-13 06:45] LABS: ALBUMIN 1.8 g/dL (3.4-5.0); CALCIUM 7.8 mg/dL (8.5-10.1); MAGNESIUM 1.9 mg/dL (1.8-2.4); PHOSPHORUS* 3.9 mg/dL (2.5-4.9); POTASSIUM 3.8 mmol/L (3.5-5.1); TOTAL BILIRUBIN 0.5 mg/dL (<0.1-1.0); TOTAL PROTEIN 5.1 g/dL (6.4-8.2)
[2019-02-13 06:46] LABS: CREATININE 3.5 mg/dL (0.6-1.3)
[2019-02-13 07:07] LABS: GLYCOHEMOGLOBIN (HGB A1C) 7.3 % (4.8-5.6)
[2019-02-13 08:00] VITALS: BP 132/76
--- NOTE | 2019-02-13 10:45 | NUR ---
ASSUMED CARE OF PATIENT THIS AM AT 0730. PATIENT IS ALERT, ORIENTED TO PERSON ONLY. PATIENT REORIENTED TO PLACE, TIME AND SITUATION. TELE SHOWS CONTROLLED AFIB. SEE FLOW SHEET FOR ASSESSMENT. PLAN TO HAVE TUNNEL CATH PLACEMENT. VASCULAR CONSULTED. VASCULAR UNABLE TO SEE PATIENT. DR WILDER NOTIFIED AND IR CONSULTED. PATIENT REPOSITIONED Q 2 HR. SHE IS TAKING HER DIET WELL. PATIENT PROGESSING TOWARDS GOALS. WILL CONTINUE TO MONITOR.
--- NOTE | 2019-02-13 11:39 | NUR ---
Pt to have TDC placed today. Updated Pt's son and DIL of POC and plan for Pt to go skilled at dc and probable need for outpt dialysis. Son in agreement, referral faxed to [facility]. Referral faxed to [facility]. Son informed that he is unsure if Pt will be able to return home with the level of care that she is requiring. Discussed option for LTC post skilled, if needed. CM informed son that [facility] may not have any LTC beds, but informed that if they can accept, they will assist with finding a LTC facility. Following.
[2019-02-13 12:07] VITALS: BP 115/56
[2019-02-13 12:08] LABS: KAPPA FREE LIGHT CHAINS 51.9 mg/L (3.3-19.4); LAMBDA FREE LIGHT CHAINS 25.9 mg/L (5.7-26.3)
[2019-02-13 16:58] VITALS: BP 129/63
[2019-02-13 20:00] VITALS: BP 124/69
[2019-02-14] VITALS: BP 115/69
[2019-02-14 04:22] VITALS: BP 120/71
--- NOTE | 2019-02-14 05:05 | NUR ---
ASSUMED PATIENT CARE AT 1900. PATIENT ALERT AND ORIENTED TIMES FOUR. TURNED Q2 HOURS. POLLARD IN PLACE. IV PATENT. NO COMPLAINTS OF PAIN OR DISCOMFORT NOTED. FOLDING MACHINE FEEDER AND HOURLY ROUNDING COMPLETED DOCUMENTED
[2019-02-14 05:22] LABS: HEMATOCRIT 29.7 % (37.0-47.0); HEMOGLOBIN 9.9 gm/dL (12.0-15.0); MCH 31.4 pg (26.0-34.0); MCHC 33.4 g/dL (28.0-37.0); MCV 93.9 fL (80.0-100.0); RBC 3.16 mil/uL (4.20-5.00); RDW-CV 14.4 % (10.5-14.5); WBC 10.4 thou/uL (4.0-11.0)
[2019-02-14 05:58] LABS: BUN < 1 mg/dL (7-18); CHLORIDE 93 mmol/L (98-107); SGOT 5 U/L (15-37); SODIUM 129 mmol/L (136-145); TOTAL BILIRUBIN 0.6 mg/dL (<0.1-1.0)
[2019-02-14 06:13] LABS: ALBUMIN 1.9 g/dL (3.4-5.0); ALKALINE PHOSPHATASE 84 U/L (46-116); ANION GAP 13 mmol/L (7-16); CALCIUM 7.5 mg/dL (8.5-10.1); CO2 23 mmol/L (21-32); GLUCOSE 64 mg/dL (70-99); PHOSPHORUS* 4.4 mg/dL (2.5-4.9); POTASSIUM 4.8 mmol/L (3.5-5.1); SGPT 31 U/L (30-65); TOTAL PROTEIN 5.3 g/dL (6.4-8.2)
[2019-02-14 06:20] LABS: MAGNESIUM 1.8 mg/dL (1.8-2.4)
--- NOTE | 2019-02-14 06:54 | NUR ---
JARET DRAIN TAKEN OUT BY SURGERY RESIDENTS
[2019-02-14 08:00] VITALS: BP 133/63
--- NOTE | 2019-02-14 09:55 | NUR ---
Cm spoke with [facility] BS, plan to start outpt dialysis on Tuesday, with a MWF schedule, Pt's chair time will be 345pm, Pt will need to be there at 325pm. ROBYN updated Awaiting fax confirmation.
[2019-02-14 11:56] VITALS: BP 119/55
--- NOTE | 2019-02-14 17:13 | NUR ---
ASSUMED CARE OF PT AT 0730. PT A&0X2-3, FORGETFUL AND CONFUSED AT TIMES. EASILY REDIRECTABLE. TRACING AFIB ON THE RELIEF MATE. PT HAD TUNNELED DIALYSIS CATHETER PLACED TODAY AND IS CURRENTLY UP IN DIALYSIS AT THIS TIME. IN CONTACT ISOLATION FOR ESBL IN URINE. ON RA SAT UPPER 90'S. PT DENIES ANY PAIN OR SHORTNESS OF BREATH. PT AT BEDSIDE THIS AM AND UPDATED ON CURRENT PLAN OF CARE. POLLARD TO DEPENDENT DRAINAGE. PT INCONT OF BOWEL THIS AM. PT WORKED WITH PHYSICAL THERAPY THIS AFTERNOON-TOLERATED FAIR. ID AND RENAL CONSULT IN PLACE. 1200 ML FL RESTRICTION IN PLACE. AM ASSESSMENT CHARTED. MEDICATIONS PER JUN. PT REPOSITIONED EVERY 2 HOURS FOR COMFORT. HOURLY ROUNDING OBSERVED. BED IN LOW POSITION. BED ALARM IN PLACE. FALL PRECAUTIONS IN PLACE. CALL LIGHT WITHIN REACH. WILL CONTINUE PLAN OF CARE.
[2019-02-14 20:00] VITALS: BP 121/62
[2019-02-15] VITALS (7 sets, daily range): BP systolic 104–135; BP diastolic 55–73
[2019-02-15 05:19] LABS: HEMATOCRIT 27.2 % (37.0-47.0); MCH 30.9 pg (26.0-34.0); MCHC 33.1 g/dL (28.0-37.0); MCV 93.3 fL (80.0-100.0); MPV 9.1 fl. (7.2-11.1); RBC 2.91 mil/uL (4.20-5.00); RDW-CV 13.8 % (10.5-14.5); WBC 9.5 thou/uL (4.0-11.0)
[2019-02-15 05:43] LABS: CREATININE 3.1 mg/dL (0.6-1.3); MAGNESIUM 1.8 mg/dL (1.8-2.4); POTASSIUM 4.3 mmol/L (3.5-5.1)
--- NOTE | 2019-02-15 06:01 | NUR ---
ASSUMED PATIENT CARE AT 1900. ASSESSMENT COMPLETED CHARTED. VSS. RIGHT CHEST DOUBLE LUMEN DIALYSIS CATHETER DRESSING CDI. RUQ INCISION, KORTNEY INTACT, NO INFLAMMATION. OSTOMY SITE IS CDI. HOURLY ROUNDING IN PLACE FOR PATIENT SAFETY. CLWR.
--- NOTE | 2019-02-15 13:28 | NUR ---
Spoke with hospitalist and ID, plan dc to [facility] tomorrow. Updated Heather at [facility]. Plan to start outpt dialysis at [facility] on Tuesday. Following.
--- NOTE | 2019-02-15 18:57 | NUR ---
ASSUMED CARE OF PT AT 0730.PT TRACING AFIB ON THE DIET SUPERVISOR. ON RA SAT UPPER 90'S. PT DENIES ANY PAIN OR SHORTNESS OF BREATH THROUGHOUT SHIFT. IN CONTACT ISOLATION FOR ESBL IN URINE. POLLARD TO DEPENDENT DRAINAGE. 1200 ML FLUID RESTRICTION. PT WORKED WITH PHYSICAL THERAPY TODAY- UP TO CHAIR WITH LOPEZ LIFT- TOLERATED WELL. PT WILL HAVE DIALYSIS TOMORROW. ALBUMIN GIVEN PER NEPHROLOGY TODAY. PT INCONT OF BOWEL TODAY. AM ASSESSMENT CHARTED. MEDICATIONS PER JUN. PT REPOSITIONED EVERY 2 HOURS FOR COMFORT. HOURLY ROUNDING OBSERVED. BED IN LOW POSITION. BED ALARM IN PLACE. FALL PRECAUTIONS IN PLACE. CALL LIGHT WITHIN REACH. WILL CONTINUE PLAN OF CARE.
[2019-02-16] VITALS: BP 131/59
[2019-02-16 04:00] VITALS: BP 121/65
[2019-02-16 04:45] LABS: HEMATOCRIT 24.3 % (37.0-47.0); HEMOGLOBIN 8.2 gm/dL (12.0-15.0); MCH 31.3 pg (26.0-34.0); MCHC 33.7 g/dL (28.0-37.0); MCV 92.8 fL (80.0-100.0); MPV 8.8 fl. (7.2-11.1); RBC 2.62 mil/uL (4.20-5.00); WBC 9.9 thou/uL (4.0-11.0)
[2019-02-16 05:00] LABS: ALBUMIN 2.5 g/dL (3.4-5.0); CALCIUM 7.9 mg/dL (8.5-10.1); CREATININE 3.6 mg/dL (0.6-1.3); MAGNESIUM 1.8 mg/dL (1.8-2.4); TOTAL BILIRUBIN 0.5 mg/dL (<0.1-1.0); TOTAL PROTEIN 5.4 g/dL (6.4-8.2)
--- NOTE | 2019-02-16 05:49 | NUR ---
PT SLEPT MOST OF SHIFT. ASSESSMENT DOCUMENTED. MEDS GIVEN PER E-JUN. IV PATENT. NO REPORTS OF PAIN. PT REPOSITIONED THROUGH SHIFT. INCISION INTACT. WILL CONTINUE WITH PLAN OF CARE.
--- NOTE | 2019-02-16 07:10 | NUR ---
CHANGE OF SHIFT, BEDSIDE REPORT GIVEN PATIENT SEEN AT BEDSIDE, IN BED RESTING ASSUMED PATIENT CARE
[2019-02-16 08:00] VITALS: BP 130/67
--- NOTE | 2019-02-16 11:36 | NUR ---
Spoke with , do not anticipate weekend dc. Pt to have dialysis today and tomorrow, continues on IVABX with TDC access only. Updated Heather at [facility] and [facility] of change in outpt start date to Tuesday. Following.
[2019-02-16 12:09] VITALS: BP 140/71
[2019-02-16 20:00] VITALS: BP 134/60
[2019-02-17] VITALS: BP 134/67
--- NOTE | 2019-02-17 02:03 | NUR ---
PT ALERT ORIENTED X 4. VERY NOOKSACK. TURN Q 4 HRS. POLLARD DC PRIOR TO SHIFT CHANGE. PT GIVEN LASIX AT HS BUT ALSO HAD HD TODAY. BLADDER SCAN AT [place] SHOWED 100MLS. R CHEST TESSIO DRSG D/I. SMALL OPENING IN ABD DRAINING BROWN. OSTOMY BAG OVER OPENING. DENIES PAIN. TELEMETRY SHOWS AFIB.
[2019-02-17 04:00] VITALS: BP 149/65
[2019-02-17 05:07] LABS: CALCIUM 8.3 mg/dL (8.5-10.1); MAGNESIUM 1.9 mg/dL (1.8-2.4)
[2019-02-17 05:08] LABS: CREATININE 2.5 mg/dL (0.6-1.3)
--- NOTE | 2019-02-17 06:27 | NUR ---
PT ABD FLUID COLLECTED AND SENT TO LAB FOR C&S. NO VOID THIS SHIFT.
[2019-02-17 08:00] VITALS: BP 163/63
--- NOTE | 2019-02-17 10:20 | NUR ---
PT A/O, BUT KOTZEBUE AND FORGETFUL. TELE TRACKING AFIB (RATE CONTROL) AND ALL VSS ON ROOM AIR. DENIES CP, SOA. HD THIS AM. EDUCATED ON SAFETY AND PLAN OF CARE. PLEASE SEE ASSESSMENT FOR ADDITIONAL INFORMATION.
[2019-02-17 12:50] VITALS: BP 134/59
[2019-02-17 16:00] VITALS: BP 141/65
[2019-02-17 20:00] VITALS: BP 137/69
[2019-02-18] VITALS: BP 145/82
--- NOTE | 2019-02-18 02:10 | NUR ---
PT ALERT ORIENTED. PROFOUNDLY ALUTIIQ WITH NO AIDS. TELEMETRY SHOWS AFIB. ABD OBESE WITH HEALED UPPER ABD SCAR AND LEFT LOWER FISTULA DRAINING HAHN INTO AN OSTOMY BAG. TURN Q 2 HRS. RA. HS BG 135 TX. MAINTAINING ISOLATION PRECAUTIONS.
[2019-02-18 04:00] VITALS: BP 145/82; BP 147/93
[2019-02-18 04:40] LABS: CALCIUM 8.3 mg/dL (8.5-10.1); CREATININE 2.4 mg/dL (0.6-1.3); MAGNESIUM 1.8 mg/dL (1.8-2.4); POTASSIUM 3.6 mmol/L (3.5-5.1)
--- NOTE | 2019-02-18 07:42 | NUR ---
RECEIVED REPORT AND ASSUMED CARE AT 0130. VSS. CARDIAC MONITORING IN PLACE. POSITION CHANGED EVERY TWO HOURS. HOURLY ROUNDING COMPLETED AND ALL NEEDS MET.
[2019-02-18 08:06] VITALS: BP 157/80
--- NOTE | 2019-02-18 10:29 | NUR ---
PT A/O, FORGETFUL AND DIOMEDE. TELE TRACKING AFIB AND ALL VSS ON ROOM AIR. DENIES CP, SOA. Q2 TURNS/REPOSITION. ENCOURAGED NEPRO SHAKE. EDUCATED ON SAFETY AND PLAN OF CARE. PLEASE SEE ASSESSMENT FOR ADDITIONAL INFORMATION.
[2019-02-18 11:30] VITALS: BP 130/74
[2019-02-18 16:00] VITALS: BP 122/53
[2019-02-18 20:38] VITALS: BP 141/72
[2019-02-19] VITALS: BP 118/63
[2019-02-19 04:00] VITALS: BP 158/89
[2019-02-19 05:13] LABS: HEMATOCRIT 26.3 % (37.0-47.0); HEMOGLOBIN 8.9 gm/dL (12.0-15.0); MCH 31.5 pg (26.0-34.0); MCHC 33.6 g/dL (28.0-37.0); MCV 93.5 fL (80.0-100.0); MPV 8.4 fl. (7.2-11.1); RBC 2.81 mil/uL (4.20-5.00); WBC 7.6 thou/uL (4.0-11.0)
--- NOTE | 2019-02-19 05:45 | NUR ---
PT IS ABLE TO COMMUNICATE HER NEEDS TO STAFF WITH SOME DIFFICULTY; SHE IS VERY EJZH-FT-NBIRILE AND IS ORIENTED ONLY TO SELF (SOMETIMES SITUATION). SHE HAS DENIED THE NEED FOR PAIN MEDICATION UP TO THIS TIME. ABD FISTULA COLLECTION APPARATUS IS INTACT UP TO THIS TIME. CONTACT ISOLATION MAINTAINED.
[2019-02-19 05:48] LABS: CALCIUM 8.3 mg/dL (8.5-10.1); CREATININE 3.2 mg/dL (0.6-1.3); MAGNESIUM 1.8 mg/dL (1.8-2.4)
--- NOTE | 2019-02-19 07:10 | NUR ---
CHANGE OF SHIFT, BEDSIDE REPORT GIVEN PATIENT SEEN AT BEDSIDE, IN BED ASLEEP ASSUMED PATIENT CARE
[2019-02-19 08:00] VITALS: BP 136/67
[2019-02-19 12:32] VITALS: BP 153/65
[2019-02-19] MEDS ORDERED: PREDNISONE 20 M20 MG PO (12:42)
[2019-02-19] MEDS ORDERED: LANTUS SUBQ (12:42)
[2019-02-19] MEDS ORDERED: FLUCONAZOLE 10100 MG PO (12:42)
[2019-02-19] MEDS ORDERED: LEVALBUTER0.63 MG/3 INH (12:42)
[2019-02-19] MEDS ORDERED: FLOMAX0.4 MG PO (12:42)
[2019-02-19] MEDS ORDERED: HUMALOG100 UNIT/1 SUBQ (12:42)
[2019-02-19] MEDS ORDERED: TRAMADOL 50 MG50 MG PO (12:42)
[2019-02-19] MEDS ORDERED: LASIX 40 MG TAB40 M1 PO (12:42)
[2019-02-19] MEDS ORDERED: CIPRO500 MG PO (12:42)
--- NOTE | 2019-02-19 13:42 | NUR ---
Pt discharging to [facility] skilled today. Faxed dc orders. Chart copied. Nurse report number is [phone]. Updated Pt's son. Ambulance to picker operator and transport at 1830
[2019-02-19] MEDS ORDERED: LEVOXYL100 MCG PO (17:09)
[2019-02-19] MEDS ORDERED: PRILOSEC OTC20 MG PO (17:13)
[2019-02-19 17:24] VITALS: BP 153/65
--- NOTE | 2019-02-19 19:02 | NUR ---
PATIENT DISCHARGED TO [facility] DISCHARGE INFORMATION, CHART COPY, PERSONAL BELONGINGS SENT IV AND HEART MONITOR REMOVED REPORT GIVEN TO KIMMY AT [facility] PATIENT TRANSPORTED VIA AMBULANCE GOOD CONDITION
== END 2019-02-19 18:57 | DRG 414 ==
LOC: M.ERS 12:04 → M.2W 14:16 → M.TBA-ER 14:16 → M.2W 17:24
PROVIDERS: Family Medicine; Internal Medicine; Internal Medicine Nephrology; Personal Emergency Response Attendant; Surgery; ADMIT Internal Medicine
PROC: 0FC98ZZ Extirpation of Matter from Common Bile Duct, Via Natural or Artificial Opening Endoscopic (ICD-10-PCS; principal; 2019-01-30)
PROC: 0F798DZ Dilation of Common Bile Duct with Intraluminal Device, Via Natural or Artificial Opening Endoscopic (ICD-10-PCS; principal; 2019-01-30)
PROC: 0FT40ZZ Resection of Gallbladder, Open Approach (ICD-10-PCS; 2019-02-01)
PROC: 0FN40ZZ Release Gallbladder, Open Approach (ICD-10-PCS; 2019-02-01)
PROC: 0FJ44ZZ Inspection of Gallbladder, Percutaneous Endoscopic Approach (ICD-10-PCS; 2019-02-01)
PROC: 5A1D70Z Performance of Urinary Filtration, Intermittent, Less than 6 Hours Per Day (ICD-10-PCS; 2019-02-05)
PROC: B548ZZA Ultrasonography of Superior Vena Cava, Guidance (ICD-10-PCS; 2019-02-05)
PROC: B5181ZA Fluoroscopy of Superior Vena Cava using Low Osmolar Contrast, Guidance (ICD-10-PCS; 2019-02-05)
PROC: 02HV33Z Insertion of Infusion Device into Superior Vena Cava, Percutaneous Approach (ICD-10-PCS; 2019-02-05)
PROC: 5A1D70Z Performance of Urinary Filtration, Intermittent, Less than 6 Hours Per Day (ICD-10-PCS; 2019-02-06)
PROC: 5A1D70Z Performance of Urinary Filtration, Intermittent, Less than 6 Hours Per Day (ICD-10-PCS; 2019-02-12)
PROC: 5A1D70Z Performance of Urinary Filtration, Intermittent, Less than 6 Hours Per Day (ICD-10-PCS; 2019-02-14)
PROC: B5181ZA Fluoroscopy of Superior Vena Cava using Low Osmolar Contrast, Guidance (ICD-10-PCS; 2019-02-15)
PROC: 0JH63XZ Insertion of Tunneled Vascular Access Device into Chest Subcutaneous Tissue and Fascia, Percutaneous Approach (ICD-10-PCS; 2019-02-15)
PROC: 02HV33Z Insertion of Infusion Device into Superior Vena Cava, Percutaneous Approach (ICD-10-PCS; 2019-02-15)
PROC: B548ZZA Ultrasonography of Superior Vena Cava, Guidance (ICD-10-PCS; 2019-02-15)
PROC: 5A1D70Z Performance of Urinary Filtration, Intermittent, Less than 6 Hours Per Day (ICD-10-PCS; 2019-02-16)
PROC: 5A1D70Z Performance of Urinary Filtration, Intermittent, Less than 6 Hours Per Day (ICD-10-PCS; 2019-02-17)
PROC: 5A1D70Z Performance of Urinary Filtration, Intermittent, Less than 6 Hours Per Day (ICD-10-PCS; 2019-02-19)
DX: K80.63 Calculus of gallbladder and bile duct with acute cholecystitis with obstruction (principal); K85.10 Biliary acute pancreatitis without necrosis or infection; R65.11 Systemic inflammatory response syndrome (SIRS) of non-infectious origin with acute organ dysfunction; K65.9 Peritonitis, unspecified; G93.41 Metabolic encephalopathy; E43 Unspecified severe protein-calorie malnutrition; N17.0 Acute kidney failure with tubular necrosis; K85.90 Acute pancreatitis without necrosis or infection, unspecified; D68.59 Other primary thrombophilia; E87.1 Hypo-osmolality and hyponatremia; E87.2 Acidosis; J98.11 Atelectasis; N39.0 Urinary tract infection, site not specified; I13.0 Hypertensive heart and chronic kidney disease with heart failure and stage 1 through stage 4 chronic kidney disease, or unspecified chronic kidney disease; I50.9 Heart failure, unspecified; E11.649 Type 2 diabetes mellitus with hypoglycemia without coma; T50.905A Adverse effect of unspecified drugs, medicaments and biological substances, initial encounter; K75.9 Inflammatory liver disease, unspecified; I95.9 Hypotension, unspecified; K59.00 Constipation, unspecified; N14.1 Nephropathy induced by other drugs, medicaments and biological substances; E83.39 Other disorders of phosphorus metabolism; T50.8X5A Adverse effect of diagnostic agents, initial encounter; D64.9 Anemia, unspecified; K21.9 Gastro-esophageal reflux disease without esophagitis; M19.90 Unspecified osteoarthritis, unspecified site; R74.0 Nonspecific elevation of levels of transaminase and lactic acid dehydrogenase [LDH]; E87.5 Hyperkalemia; E80.6 Other disorders of bilirubin metabolism; N18.9 Chronic kidney disease, unspecified; E11.22 Type 2 diabetes mellitus with diabetic chronic kidney disease; I48.91 Unspecified atrial fibrillation; B96.20 Unspecified Escherichia coli [E. coli] as the cause of diseases classified elsewhere; E03.9 Hypothyroidism, unspecified; E78.5 Hyperlipidemia, unspecified; Z96.653 Presence of artificial knee joint, bilateral; Z96.643 Presence of artificial hip joint, bilateral; Z79.84 Long term (current) use of oral hypoglycemic drugs; Z79.899 Other long term (current) drug therapy; Z79.01 Long term (current) use of anticoagulants; Z80.0 Family history of malignant neoplasm of digestive organs; Y92.89 Other specified places as the place of occurrence of the external cause

== ENCOUNTER 2019-03-08 20:36 | Emergency (ER) | payer MEDICARE, BC ==
[~2019-03-08] VITALS: Ht 167.6 cm; Wt 89.8 kg
[~2019-03-08 20:36] MED LIST changes: +CIPRO500 MG PO; +FLOMAX0.4 MG PO; +FLUCONAZOLE 10100 MG PO; +HUMALOG100 UNIT/1 SUBQ; +LANTUS SUBQ; +LASIX 40 MG TAB40 M1 PO; +LEVALBUTER0.63 MG/3 INH; +LEVOTHYROXINE 0.1 MG PO; +LEVOXYL100 MCG PO; +LIPITOR10 MG PO; +LUMIGAN2.5 M1 OPHTHALMIC; +PREDNISONE 20 M20 MG PO; +PRESERVISION A1 EAC2 PO; -SYNTHROID100 MC1 PO; +TRAMADOL 50 MG50 MG PO
[2019-03-08] MEDS ORDERED: KLOR-CON M2020 MEQ PO (20:47)
[2019-03-08] MEDS ORDERED: MYLANTA MAXIMU355 ML PO (20:47)
[2019-03-08] MEDS ORDERED: PAIN RELIEF325 MG PO (20:48)
[2019-03-08 20:57] LABS: ABSOLUTE BASOPHILS 0.1 thou/uL (0.0-0.2); ABSOLUTE EOSINOPHILS 0.1 thou/uL (0.0-0.7); ABSOLUTE LYMPHOCYTES 1.2 thou/uL (0.8-5.3); ABSOLUTE MONOCYTES 0.7 thou/uL (0.0-1.2); ABSOLUTE NEUTROPHILS 5.4 thou/uL (1.6-8.1); BASOPHILS 0.9 %; EOSINOPHILS 1.6 %; HEMATOCRIT 28.1 % (37.0-47.0); HEMOGLOBIN 9.6 gm/dL (12.0-15.0); LYMPHOCYTES 15.5 %; MCH 31.8 pg (26.0-34.0); MCHC 34.1 g/dL (28.0-37.0); MCV 93.3 fL (80.0-100.0); MONOCYTES 9.9 %; MPV 7.6 fl. (7.2-11.1); NUCLEATED RBCS 0 /100WBC; PLATELET COUNT* 258 thou/uL (150-400); POLYS 72.1 %; RBC 3.01 mil/uL (4.20-5.00); RDW-CV 15.2 % (10.5-14.5); WBC 7.5 thou/uL (4.0-11.0)
[2019-03-08 21:05] LABS: CALCIUM 8.9 mg/dL (8.5-10.1); CREATININE 2.7 mg/dL (0.6-1.3); POTASSIUM 3.8 mmol/L (3.5-5.1)
[2019-03-08 21:10] LABS: ALBUMIN 2.9 g/dL (3.4-5.0); TOTAL BILIRUBIN 0.7 mg/dL (<0.1-1.0); TOTAL PROTEIN 6.9 g/dL (6.4-8.2)
[2019-03-09 01:06] VITALS: BP 102/60
--- NOTE | 2019-03-09 10:39 | EKG ---
[place] [address] ELECTROCARDIOGRAM REPORT Name: FLORY COPE [id number] Admission: 03/08/19 Attend Phys: Discharge: 03/09/19 Date of : [birth year] Report #: [id number] THIS REPORT FOR: //name// [facility] ED Test Date: 2019-03-08 Test Time: 20:58:23 Pat Name: FLORY COPE Department: Room: Gender: F Operations Project Manager: : [id number] Requested By: Gabby Moffett Order Number: [id number] MD: Miller Bobby Measurements Intervals [place] Rate: 101 P: MS: QRS: -48 QRSD: 111 T: 78 QT: 365 QTc: 474 Interpretive Statements Atrial fibrillation Anterior Q waves Compared to ECG 01/29/2019 12:07:17 Incomplete right bundle-branch block no longer present Electronically Signed On 03-09-2019 10:39:19 GAMBLING MONITOR by Miller Bobby [email or web address] <ELECTRONICALLY SIGNED> By: Miller Bobby MD, [facility] 03/09/19 1039 57 57 Miller Bobby MD, FACC /EPI
== END 2019-03-09 01:06 | disposition home or self-care (01) ==
LOC: M.ERS 20:36
PROVIDERS: Emergency Medicine
DX: R19.7 Diarrhea, unspecified (principal); E11.9 Type 2 diabetes mellitus without complications; I48.91 Unspecified atrial fibrillation; Z96.653 Presence of artificial knee joint, bilateral; Z96.643 Presence of artificial hip joint, bilateral; Z79.4 Long term (current) use of insulin

== ENCOUNTER 2019-03-15 15:20 | Emergency (ER) | payer MEDICARE, BC ==
[~2019-03-15] VITALS: Ht 170.2 cm; Wt 83.0 kg
[~2019-03-15 15:20] MED LIST changes: +KLOR-CON M2020 MEQ PO; -LEVOTHYROXINE 0.1 MG PO; +MYLANTA MAXIMU355 ML PO; +PAIN RELIEF325 MG PO; +SYNTHROID100 MC1 PO
[2019-03-15 15:56] LABS: URINE BLOOD 2+ (Negative); URINE CLARITY SL CLOUDY; URINE COLOR YELLOW; URINE GLUCOSE-RANDOM NEGATIVE (Negative); URINE KETONES TRACE (Negative); URINE NITRITE-REFLEX NEGATIVE (Negative); URINE PROTEIN TRACE (Negative)
[2019-03-15 16:02] LABS: HEMATOCRIT 29.3 % (37.0-47.0); HEMOGLOBIN 9.9 gm/dL (12.0-15.0); MCH 31.8 pg (26.0-34.0); MCHC 33.7 g/dL (28.0-37.0); MCV 94.1 fL (80.0-100.0); MPV 8.3 fl. (7.2-11.1); NUCLEATED RBCS 0 /100WBC; PLATELET COUNT* 264 thou/uL (150-400); RBC 3.11 mil/uL (4.20-5.00); RDW-CV 15.9 % (10.5-14.5); WBC 9.1 thou/uL (4.0-11.0)
[2019-03-15 16:06] LABS: URINE BILIRUBIN 2+ (Negative); URINE LEUKOCYTES-REFLEX 3+ (Negative)
[2019-03-15 16:08] LABS: SQUAMOUS 4-10 Moderate /LPF (0-3); URINE WBC-REFLEX >25 Many /HPF (0-5)
[2019-03-15 16:09] LABS: URINE RBC 0-2 Rare /HPF (0-2)
[2019-03-15 16:10] LABS: CRYSTALS None Seen /LPF (None Seen); HYALINE CASTS 4-10 Moderate /LPF (None Seen); MUCUS None Seen strn/LPF (None Seen)
[2019-03-15 16:11] LABS: CALCIUM 8.7 mg/dL (8.5-10.1); CREATININE 2.7 mg/dL (0.6-1.3); POTASSIUM 4.7 mmol/L (3.5-5.1)
[2019-03-15 16:15] LABS: ALBUMIN 2.8 g/dL (3.4-5.0); TOTAL BILIRUBIN 0.6 mg/dL (<0.1-1.0); TOTAL PROTEIN 6.8 g/dL (6.4-8.2)
[2019-03-15 16:46] LABS: ABSOLUTE EOSINOPHILS 0.1 thou/uL (0.0-0.7); ABSOLUTE LYMPHOCYTES 0.7 thou/uL (0.8-5.3); ABSOLUTE MONOCYTES 0.6 thou/uL (0.0-1.2); ABSOLUTE NEUTROPHILS 7.6 thou/uL (1.6-8.1)
[2019-03-15 16:48] LABS: GIANT PLATELETS RARE; OVALOCYTES 1+
[2019-03-15] MEDS ORDERED: KEFLEX500 M1 PO (18:01)
[2019-03-15 18:32] VITALS: BP 104/43
--- NOTE | 2019-03-16 13:54 | EKG ---
[place] [address] ELECTROCARDIOGRAM REPORT Name: FLORY COPE [id number] Admission: 03/15/19 Attend Phys: Discharge: 03/15/19 Date of : [birth year] Report #: [id number] THIS REPORT FOR: //name// [facility] ED Test Date: 2019-03-15 Test Time: 15:57:31 Pat Name: FLORY COPE Department: Room: Gender: F Zipper Setter Chainstitch: : 1930 Requested By: Shawn Persaud Order Number: [id number] MD: Evans Kahn Measurements Intervals [place] Rate: 110 P: VT: QRS: -47 QRSD: 141 T: 87 QT: 343 QTc: 465 Interpretive Statements Atrial fibrillation Left bundle branch block Compared to ECG 03/08/2019 20:58:23 No significant change Electronically Signed On 03-16-2019 13:54:15 AUDIT OFFICER by Evans Kahn [email or web address] <ELECTRONICALLY SIGNED> By: Evans Kahn MD, [facility] 03/16/19 1354 1557 1557 Evans Kahn MD, FACC /EPI
== END 2019-03-15 18:34 | disposition home or self-care (01) ==
LOC: M.ERS 15:20
PROVIDERS: Emergency Medicine Emergency Medical Services
DX: N39.0 Urinary tract infection, site not specified (principal); I13.2 Hypertensive heart and chronic kidney disease with heart failure and with stage 5 chronic kidney disease, or end stage renal disease; I50.9 Heart failure, unspecified; I48.91 Unspecified atrial fibrillation; E03.9 Hypothyroidism, unspecified; E78.5 Hyperlipidemia, unspecified; E11.22 Type 2 diabetes mellitus with diabetic chronic kidney disease; N18.6 End stage renal disease; K21.9 Gastro-esophageal reflux disease without esophagitis; Z99.2 Dependence on renal dialysis; Z87.440 Personal history of urinary (tract) infections; Z86.2 Personal history of diseases of the blood and blood-forming organs and certain disorders involving the immune mechanism; Z96.643 Presence of artificial hip joint, bilateral; Z96.653 Presence of artificial knee joint, bilateral; Z90.49 Acquired absence of other specified parts of digestive tract

== ENCOUNTER 2019-03-26 18:14 | Inpatient (IN) | payer MEDICARE, BC ==
[~2019-03-26] VITALS: Ht 162.6 cm; Wt 86.2 kg
[~2019-03-26 18:14] MED LIST changes: -DIFLUCAN100 MG PO; -PREDNISONE 10 M10 M1 PO; -RENAGEL800 MG PO; -VITAMIN B-121000 MC2 SUBLING
[2019-03-26 18:16] VITALS: BP 108/48
[2019-03-26] MEDS ORDERED: RENAGEL800 MG PO (18:18)
[2019-03-26] MEDS ORDERED: FLOMAX0.4 MG PO (18:18)
[2019-03-26] MEDS ORDERED: VITAMIN B-121000 MC2 SUBLING (18:19)
[2019-03-26] MEDS ORDERED: DIFLUCAN100 MG PO (18:19)
[2019-03-26] MEDS ORDERED: PREDNISONE 10 M10 M1 PO (18:20)
[2019-03-26 18:56] LABS: ABSOLUTE EOSINOPHILS 0.1 thou/uL (0.0-0.7); ABSOLUTE LYMPHOCYTES 0.9 thou/uL (0.8-5.3); ABSOLUTE MONOCYTES 0.6 thou/uL (0.0-1.2); ABSOLUTE NEUTROPHILS 7.5 thou/uL (1.6-8.1); BASOPHILS 0.5 %; EOSINOPHILS 1.4 %; HEMATOCRIT 30.4 % (37.0-47.0); HEMOGLOBIN 10.3 gm/dL (12.0-15.0); LYMPHOCYTES 9.7 %; MCH 32.2 pg (26.0-34.0); MCHC 33.9 g/dL (28.0-37.0); MCV 95.1 fL (80.0-100.0); MONOCYTES 6.3 %; MPV 8.5 fl. (7.2-11.1); NUCLEATED RBCS 0 /100WBC; PLATELET COUNT* 217 thou/uL (150-400); POLYS 82.1 %; RBC 3.19 mil/uL (4.20-5.00); RDW-CV 16.3 % (10.5-14.5); WBC 9.2 thou/uL (4.0-11.0)
[2019-03-26 19:06] LABS: CALCIUM 8.1 mg/dL (8.5-10.1); CREATININE 3.2 mg/dL (0.6-1.3); POTASSIUM 4.7 mmol/L (3.5-5.1)
[2019-03-26 19:08] LABS: INR 1.2; PROTIME 12.5 Seconds (9.20-11.50)
[2019-03-26 19:12] LABS: APTT 124.6 Seconds (25.0-31.3)
[2019-03-26 19:16] LABS: ALBUMIN 2.1 g/dL (3.4-5.0); MAGNESIUM 1.6 mg/dL (1.8-2.4); TOTAL BILIRUBIN 0.5 mg/dL (<0.1-1.0); TOTAL PROTEIN 6.2 g/dL (6.4-8.2)
[2019-03-26 21:55] VITALS: BP 87/54
[2019-03-26 22:30] VITALS: BP 88/45
[2019-03-26 23:00] VITALS: BP 99/58
[2019-03-27 04:00] VITALS: BP 99/53
[2019-03-27 05:00] VITALS: BP 101/54
[2019-03-27 08:00] VITALS: BP 98/51
--- NOTE | 2019-03-27 11:03 | EKG ---
[place] [address] ELECTROCARDIOGRAM REPORT Name: FLORY COPE Room: [address] ADM IN [facility].#: [id number] Admission: 03/26/19 Attend Phys: Will Sosa MD Discharge: Date of : [birth year] Report #: [id number] THIS REPORT FOR: //name// [facility] ED Test Date: 2019-03-26 Test Time: 18:28:21 Pat Name: FLORY COPE Department: Room: [facility] Gender: F Reproduction Specialist: neo : 1930 Requested By: Shawn Persaud Order Number: [id number] MD: Riley Vale Measurements Intervals [place] Rate: 130 P: 189 GA: 98 QRS: -34 QRSD: 108 T: 102 QT: 332 QTc: 488 Interpretive Statements Atrial fibrillation Left axis deviation Abnormal R-wave progression, late transition Artifact in lead(s) I,III,V1,V3,V4,V5,V6 Compared to ECG 03/15/2019 15:57:31 Left-axis deviation now present Electronically Signed On 03-27-2019 11:02:54 DULITE MACHINE BLUER by Riley Vale [email or web address] <ELECTRONICALLY SIGNED> By: Riley Vale MD, FACC 03/27/19 1102 1828 1828 Riley Vale MD, FACC /EPI
[2019-03-27 12:07] VITALS: BP 87/49
--- NOTE | 2019-03-27 14:59 | 2DMMODE ---
[place] [address] 2 D/M-MODE ECHOCARDIOGRAM Name: FLORY COPE Room: [address] IN [facility]#: [id number] Admission: 03/26/19 Attend Phys: Will Sosa, Discharge: Date of : [birth year] Date of Service: 03/27/19 1458 Report #: [id number] THIS REPORT FOR: //name// APPROVED REPORT Study performed: 03/27/2019 11:13:34 EXAM: Comprehensive 2D, Doppler, and color-flow Echocardiogram Patient Location: In-Patient Room #: On license of [facility] Status: routine BSA: 1.93 HR: 103 bpm BP: 101/54 mmHg Rhythm: NSR Other Information Study Quality: Good Indications Atrial Fibrillation 2D Dimensions IVSd: 11.49 (7-11mm) LVOT Diam: 19.58 (18-24mm) LVDd: 40.61 mm PWd: 10.32 (7-11mm) LVDs: 21.66 (25-40mm) Aortic Root: 32.61 mm Volumes Left Atrial Volume (Systole) LA ESV Index: 25.00 mL/m2 Aortic Valve AoV Peak Reece.: 0.96 m/s AO Peak Gr.: 3.66 mmHg LVOT Max P.51 mmHg AO Mean Gr.: 2.47 mmHg LVOT Mean P.36 mmHg LVOT Max V: 0.79 m/s AO V2 VTI: 14.14 cm LVOT Mean V: 0.54 m/s ROJELIO (VTI): 2.97 cm2 LVOT V1 VTI: 13.93 cm Mitral Valve MV Decel. Time: 216.00 ms MV PHT: 62.64 ms MVA (PHT): 3.51 [place]2 [place] [address] 2 D/M-MODE ECHOCARDIOGRAM Name: FLORY COPE Room: [address]#: [id number] Admission: 03/26/19 Attend Phys: Will Sosa, Discharge: Date of : [birth year] Date of Service: 03/27/19 1458 Report #: [id number] TDI Lateral E' Reece.: 0.14 m/s Pulmonary Valve PV Peak Reece.: 0.99 m/s PV Peak Gr.: 3.94 mmHg Left Ventricle The left ventricle is normal size. There is normal LV segmental wall motion. There is normal left ventricular wall thickness. Left ventricular systolic function is normal. LVEF is 60-65%. This study is not technically sufficient to allow evaluation of the LV diastolic function due to atrial fibrillation. Right Ventricle The right ventricle is normal size. The right ventricular systolic function is normal. Atria The left atrium size is normal. The right atrium size is normal. Aortic Valve The aortic valve is normal in structure. No aortic regurgitation is present. There is no aortic valvular stenosis. Mitral Valve There is mitral annular calcification. There is no mitral valve regurgitation noted. No evidence of mitral valve stenosis. Tricuspid Valve The tricuspid valve is normal in structure. Trace tricuspid regurgitation. Pulmonic Valve The pulmonary valve is normal in structure. There is no pulmonic valvular regurgitation. Great Vessels The aortic root is normal in size. IVC is normal in size and collapses >50% with inspiration. Pericardium There is no pericardial effusion. <Conclusion> [place] [address] 2 D/M-MODE ECHOCARDIOGRAM Name: ARPIT COPEJEY Singh Room: [address] IN .R.#: [id number] Admission: 03/26/19 Attend Phys: Will Sosa, Discharge: Date of : [birth year] Date of Service: 03/27/19 1458 Report #: [id number] The left ventricle is normal size. There is normal left ventricular wall thickness. Left ventricular systolic function is normal. LVEF is 60-65%. This study is not technically sufficient to allow evaluation of the LV diastolic function due to atrial fibrillation. There is mitral annular calcification. Trace tricuspid regurgitation. IVC is normal in size and collapses >50% with inspiration. <ELECTRONICALLY SIGNED> By: Riley Vale MD, FACC 03/27/19 1458 1458 1458 Riley Vale MD, FACC /INF
[2019-03-27 16:49] VITALS: BP 81/45
[2019-03-27 20:00] VITALS: BP 89/54
[2019-03-28] VITALS: BP 87/49
[2019-03-28 01:04] LABS: URINE BILIRUBIN NEGATIVE (Negative); URINE BLOOD 1+ (Negative); URINE CLARITY CLEAR; URINE COLOR YELLOW; URINE GLUCOSE-RANDOM NEGATIVE (Negative); URINE KETONES NEGATIVE (Negative); URINE PROTEIN TRACE (Negative); URINE UROBILINOGEN 0.2 E.U./dl (0.2-1.0)
[2019-03-28 01:05] LABS: URINE LEUKOCYTES-REFLEX 3+ (Negative); URINE NITRITE-REFLEX POSITIVE (Negative)
[2019-03-28 02:09] LABS: CASTS None Seen /LPF (None Seen); SQUAMOUS >10 Many /LPF (0-3); URINE WBC-REFLEX >25 Many /HPF (0-5)
[2019-03-28 02:10] LABS: BACTERIA-REFLEX >30 Many /HPF (None Seen); CRYSTALS None Seen /LPF (None Seen); URINE RBC 3-10 Few /HPF (0-2)
[2019-03-28 04:00] VITALS: BP 113/57
[2019-03-28 04:54] LABS: ALBUMIN 1.7 g/dL (3.4-5.0); CALCIUM 8.1 mg/dL (8.5-10.1); CREATININE 3.5 mg/dL (0.6-1.3); POTASSIUM 3.9 mmol/L (3.5-5.1); TOTAL BILIRUBIN 0.3 mg/dL (<0.1-1.0); TOTAL PROTEIN 5.2 g/dL (6.4-8.2)
[2019-03-28 07:37] VITALS: BP 95/49; BP 95/94
[2019-03-28 12:00] VITALS: BP 95/52
--- NOTE | 2019-03-28 12:11 | CON ---
[address] [address] CONSULTATION Name: FLORY COPE Room: [address] IN M.R.#: [id number] Admission: 03/26/19 Attend Phys: Will Sosa MD Discharge: Date of : [birth year] Report #: [id number] THIS REPORT FOR: //name// CC: Rajeev Bennett [facility], [facility]–1983 DATE OF SERVICE: 03/27/2019 NEPHROLOGY CONSULTATION ATTENDING PHYSICIAN: Dr. Sosa. I am asked to see this 88-year-old female at the request of Dr. Sosa for end-stage renal disease management. CHIEF COMPLAINT: Atrial fibrillation with RVR and low blood pressure. HISTORY OF PRESENT ILLNESS: The patient was taken from dialysis to the ED yesterday because she had an episode of hypotension of 60/40 that began just prior to her dialysis treatment. Therefore, she could not be dialyzed and she was transferred to the ED before completing her treatment. The patient had received some of her treatment before this episode occurred. In the ED, the patient had some intermittent abdominal pain and dizziness, but otherwise had no complaints. She was given a 500 mL bolus of normal saline, but her blood pressure did not improve very significantly. The patient has been followed for chronic atrial fibrillation, but apparently has not had issues recently with any rapid ventricular response and significant hypotension. The patient underwent an open cholecystectomy a couple of months ago due to cholecystitis and pancreatitis, unresolved by bile duct stenting. The patient tolerated this procedure well and recovered, but after that her kidney function declined to the point of dialysis being initiated. The patient has had a wound in the right upper quadrant that apparently initially healed well, but then a draining area became more pronounced in the lower abdomen and it has persisted. The patient has other past medical history positive for the onset of ESRD as described above, following her cholecystectomy and cholecystitis and pancreatitis. She has chronic constipation, history of pulmonary edema, anemia, hypertension, osteoarthritis, hypothyroidism, hyperlipidemia and type 2 DM. She has had bilateral knee replacements, bilateral hip replacement. She has had bowel surgery and a bladder sling. FAMILY HISTORY: Noncontributory at her age of 88. SOCIAL HISTORY: She is not a tobacco user. No alcohol, no recreational drugs. ALLERGIES: [place] [address] CONSULTATION Name: FLORY COPE Room: [address]#: [id number] Admission: 03/26/19 Attend Phys: Will Sosa MD Discharge: Date of : [birth year] Report #: [id number] HOME MEDICATIONS: Have included levalbuterol inhalations every 6 hours p.r.n. shortness of air, tramadol 50 mg every 4 hours p.r.n. pain, furosemide 40 mg b.i.d., glargine insulin 3 units subcutaneous at bedtime, Lispro insulin 1 unit subcutaneous just before meals and at bedtime. She is also on levothyroxine 100 mcg daily, Mylanta maximum strength 30 mL daily p.r.n., potassium chloride 20 mEq daily, acetaminophen 325 mg every 6 hours p.r.n., sevelamer 800 mg t.i.d., tamsulosin 0.4 mg daily, cyanocobalamin 1 tablet sublingually daily, Diflucan 100 mg daily, prednisone 10 mg daily, estradiol 1 mg daily due to his fish oil 1000 mg daily, calcium plus vitamin D3 b.i.d., omeprazole leem-mez-dzynnzu 20 mg b.i.d., atorvastatin 10 mg at bedtime, and Lumigan 0.01% one drop ophthalmologically every evening. REVIEW OF SYSTEMS: GENERAL: She has had no fever, chills, cough, diarrhea or any other new acute symptoms. She has just had the recent onset of lightheadedness and dizziness. HEENT: No change in vision or hearing. CARDIAC: AFib with rapid ventricular response and hypotension. PULMONARY: Not short of air, prior history of pulmonary edema. GASTROINTESTINAL: No nausea, vomiting, or diarrhea. She does have chronic constipation. GENITOURINARY: No urgency, frequency or UTI symptoms. GASTROINTESTINAL: She has had the recent cholecystectomy and has had a draining area in her lower abdomen. Recently, she does not know how long this has been ongoing. ENDOCRINE: Positive diabetes. Positive thyroid disease. HEMATOLOGIC AND LYMPHATIC: Anemia of recent surgery and chronic kidney disease. SKIN AND INTEGUMENT: No rashes. PSYCHIATRIC: No psychiatric diagnoses. NEUROLOGIC: She has no numbness, tingling, TIA or CVA symptoms. No tremor, no Parkinson's disease, no seizure disorder. MUSCULOSKELETAL: Symmetrical weakness. Other 14-point review of systems is as above. PHYSICAL EXAMINATION: GENERAL: She is hard of hearing, but does awaken easily. VITAL SIGNS: Show that she has a temperature of 37.2, heart rate 100, respirations 19, blood pressure 81/45. HEENT: She is atraumatic and normocephalic. Her pupils react to light. NECK: Supple, no increased jugular venous pressure. CHEST: Clear. HEART: Irregularly irregular without rubs or gallops. ABDOMEN: Soft. There is some bilious drainage from the wound on the right lower abdomen. No surrounding cellulitis, no tenderness, no masses. BACK: Shows no CVA tenderness. SKIN/EXTREMITIES: No rashes. No other skin disruption Other than that noted on [facility] [address] [place] [address] CONSULTATION Name: FLORY COPE Francisco Room: [address] IN [facility].#: [id number] Admission: 03/26/19 Attend Phys: Will Sosa MD Discharge: Date of : [birth year] Report #: [id number] the abdomen. No edema. PSYCHIATRIC: Cooperative, mood and affect seemed normal. NEUROLOGIC: Cranial nerves, sensory, motor appear to be at her recent baseline. LABORATORY DATA: Shows a white count of 9200, hemoglobin 10.3, hematocrit 30.4, and platelets 217,000. Coags show a PT of 12.5, INR 1.2, PTT 124.6. Her sodium is 136, potassium 4.7, chloride 100, CO2 of 28, BUN and creatinine 27 and 3.2, glucose 201, calcium 8.1, magnesium 1.6, total bilirubin 0.5. Liver function studies not increased. Albumin 2.1, lipase 213. Chest x-ray shows that on the film of yesterday, she has normal heart size, normal pulmonary vascularity. Dual lumen right IJ catheter with tip in the right atrium. IMPRESSION: 1. End-stage renal disease, usually on Tuesday, Tuesday, Tuesday dialysis. 2. Rapid atrial fibrillation with rapid ventricular response. 3. Type 2 diabetes mellitus, insulin-dependent. 4. Hypertension history. 5. History of urinary retention. 6. Anemia of chronic kidney disease. 7. Gastroesophageal reflux disease. 8. Hypothyroidism. 9. Hyperlipidemia. 10. Chronic constipation. PLAN: The patient was dialyzed today due to her hypotension and rapid ventricular response. Hopefully, she can resume her chronic dialysis schedule tomorrow. Fortunately, she is not hyperkalemic and is not in any respiratory distress. We will follow closely and manage her renal and dialysis needs. <ELECTRONICALLY SIGNED> By: Coleen Pratt MD 03/28/19 1211 1703 0137Coleen Pratt MD /nt
[2019-03-28 20:00] VITALS: BP 86/54
[2019-03-29] VITALS (7 sets, daily range): BP systolic 77–99; BP diastolic 38–56
[2019-03-29 05:06] LABS: ABSOLUTE EOSINOPHILS 0.3 thou/uL (0.0-0.7); ABSOLUTE LYMPHOCYTES 0.8 thou/uL (0.8-5.3); ABSOLUTE MONOCYTES 0.6 thou/uL (0.0-1.2); ABSOLUTE NEUTROPHILS 4.8 thou/uL (1.6-8.1); BASOPHILS 0.4 %; EOSINOPHILS 5.1 %; HEMATOCRIT 24.6 % (37.0-47.0); LYMPHOCYTES 12.1 %; MCHC 33.5 g/dL (28.0-37.0); MCV 95.5 fL (80.0-100.0); MONOCYTES 8.8 %; MPV 8.2 fl. (7.2-11.1); NUCLEATED RBCS 0 /100WBC; PLATELET COUNT* 163 thou/uL (150-400); POLYS 73.6 %; RBC 2.58 mil/uL (4.20-5.00); RDW-CV 16.7 % (10.5-14.5); WBC 6.5 thou/uL (4.0-11.0)
[2019-03-29 05:13] LABS: HEMOGLOBIN 8.2 gm/dL (12.0-15.0)
[2019-03-29 05:23] LABS: CALCIUM 7.8 mg/dL (8.5-10.1); MAGNESIUM 1.9 mg/dL (1.8-2.4); PHOSPHORUS* 2.1 mg/dL (2.5-4.9); POTASSIUM 3.5 mmol/L (3.5-5.1)
[2019-03-29 05:24] LABS: CREATININE 1.8 mg/dL (0.6-1.3)
[2019-03-29 23:08] LABS: HEPATITIS B SURFACE AG Negative (Negative)
[2019-03-30] VITALS: BP 113/59
[2019-03-30 05:46] LABS: CALCIUM 7.2 mg/dL (8.5-10.1); CREATININE 1.8 mg/dL (0.6-1.3); POTASSIUM 3.5 mmol/L (3.5-5.1)
[2019-03-30 06:38] LABS: ABSOLUTE EOSINOPHILS 0.3 thou/uL (0.0-0.7); ABSOLUTE LYMPHOCYTES 0.9 thou/uL (0.8-5.3); ABSOLUTE MONOCYTES 0.4 thou/uL (0.0-1.2); ABSOLUTE NEUTROPHILS 3.9 thou/uL (1.6-8.1); BASOPHILS 0.6 %; EOSINOPHILS 5.9 %; HEMATOCRIT 25.3 % (37.0-47.0); HEMOGLOBIN 8.3 gm/dL (12.0-15.0); LYMPHOCYTES 15.7 %; MONOCYTES 7.5 %; MPV 8.5 fl. (7.2-11.1); NUCLEATED RBCS 0 /100WBC; PLATELET COUNT* 177 thou/uL (150-400); POLYS 70.3 %; RBC 2.61 mil/uL (4.20-5.00); RDW-CV 17.2 % (10.5-14.5); WBC 5.6 thou/uL (4.0-11.0)
[2019-03-30 07:43] VITALS: BP 94/58
[2019-03-30 19:40] VITALS: BP 104/47
[2019-03-31] VITALS: BP 95/56
[2019-03-31 05:27] LABS: CALCIUM 8.2 mg/dL (8.5-10.1); CREATININE 1.4 mg/dL (0.6-1.3)
[2019-03-31 05:28] LABS: POTASSIUM 4.8 mmol/L (3.5-5.1)
[2019-03-31 06:42] LABS: % SATURATION 28 % (20-39); IRON 28 ug/dL (50-175)
[2019-03-31 08:00] VITALS: BP 102/63
[2019-03-31 12:02] VITALS: BP 90/55
[2019-03-31 16:51] VITALS: BP 107/55
[2019-03-31 20:00] VITALS: BP 98/55
[2019-04-01] VITALS: BP 91/40
[2019-04-01 04:00] VITALS: BP 92/47
[2019-04-01 05:16] LABS: CALCIUM 7.5 mg/dL (8.5-10.1); CREATININE 1.7 mg/dL (0.6-1.3)
[2019-04-01 05:20] LABS: POTASSIUM 3.8 mmol/L (3.5-5.1)
[2019-04-01 08:00] VITALS: BP 140/86
[2019-04-01 12:00] VITALS: BP 87/54
[2019-04-01 16:00] VITALS: BP 82/41
[2019-04-01 20:00] VITALS: BP 91/58
[2019-04-02] VITALS (10 sets, daily range): BP systolic 74–125; BP diastolic 40–68
[2019-04-02 05:01] LABS: HEMATOCRIT 25.8 % (37.0-47.0); HEMOGLOBIN 8.7 gm/dL (12.0-15.0); MCHC 33.6 g/dL (28.0-37.0); MCV 95.3 fL (80.0-100.0); MPV 8.1 fl. (7.2-11.1); RBC 2.71 mil/uL (4.20-5.00); RDW-CV 16.7 % (10.5-14.5)
[2019-04-02 05:20] LABS: ALBUMIN 1.5 g/dL (3.4-5.0); CALCIUM 7.8 mg/dL (8.5-10.1); CREATININE 1.7 mg/dL (0.6-1.3); MAGNESIUM 1.5 mg/dL (1.8-2.4); PHOSPHORUS* 2.6 mg/dL (2.5-4.9); POTASSIUM 3.1 mmol/L (3.5-5.1)
[2019-04-03] VITALS: BP 90/45
[2019-04-03 04:00] VITALS: BP 90/51
[2019-04-03 04:50] LABS: HEMATOCRIT 25.4 % (37.0-47.0); HEMOGLOBIN 8.6 gm/dL (12.0-15.0); MCH 32.3 pg (26.0-34.0); MCHC 33.9 g/dL (28.0-37.0); MCV 95.3 fL (80.0-100.0); MPV 8.2 fl. (7.2-11.1); RBC 2.67 mil/uL (4.20-5.00); RDW-CV 16.8 % (10.5-14.5); WBC 5.6 thou/uL (4.0-11.0)
[2019-04-03 04:58] LABS: CALCIUM 8.3 mg/dL (8.5-10.1); CREATININE 1.6 mg/dL (0.6-1.3); MAGNESIUM 2.8 mg/dL (1.8-2.4); PHOSPHORUS* 1.9 mg/dL (2.5-4.9); POTASSIUM 3.4 mmol/L (3.5-5.1)
[2019-04-03 08:00] VITALS: BP 113/61
[2019-04-03 12:05] VITALS: BP 100/57
[2019-04-03 16:50] VITALS: BP 95/58
[2019-04-03 20:30] VITALS: BP 97/54
[2019-04-04] VITALS (7 sets, daily range): BP systolic 96–160; BP diastolic 52–68
[2019-04-04 04:24] LABS: ABSOLUTE EOSINOPHILS 0.1 thou/uL (0.0-0.7); ABSOLUTE LYMPHOCYTES 0.6 thou/uL (0.8-5.3); ABSOLUTE MONOCYTES 0.4 thou/uL (0.0-1.2); ABSOLUTE NEUTROPHILS 5.5 thou/uL (1.6-8.1); BASOPHILS 0.5 %; EOSINOPHILS 1.8 %; HEMATOCRIT 24.9 % (37.0-47.0); HEMOGLOBIN 8.4 gm/dL (12.0-15.0); INR 1.1; LYMPHOCYTES 9.2 %; MCH 31.9 pg (26.0-34.0); MCHC 33.6 g/dL (28.0-37.0); MCV 94.8 fL (80.0-100.0); MPV 8.3 fl. (7.2-11.1); NUCLEATED RBCS 0 /100WBC; PLATELET COUNT* 229 thou/uL (150-400); POLYS 82.5 %; PROTIME 11.4 Seconds (9.20-11.50); RBC 2.62 mil/uL (4.20-5.00); WBC 6.7 thou/uL (4.0-11.0)
[2019-04-04 04:47] LABS: ALBUMIN 1.4 g/dL (3.4-5.0); CALCIUM 8.1 mg/dL (8.5-10.1); CREATININE 1.6 mg/dL (0.6-1.3); POTASSIUM 3.5 mmol/L (3.5-5.1); TOTAL BILIRUBIN 0.3 mg/dL (<0.1-1.0)
[2019-04-05 04:47] LABS: HEMATOCRIT 26.9 % (37.0-47.0); HEMOGLOBIN 8.7 gm/dL (12.0-15.0); MCHC 32.4 g/dL (28.0-37.0); MCV 95.9 fL (80.0-100.0); MPV 8.7 fl. (7.2-11.1); RBC 2.81 mil/uL (4.20-5.00); RDW-CV 17.1 % (10.5-14.5); WBC 5.6 thou/uL (4.0-11.0)
[2019-04-05 04:59] VITALS: BP 104/56
[2019-04-05 05:14] LABS: ALBUMIN 1.6 g/dL (3.4-5.0); CALCIUM 8.2 mg/dL (8.5-10.1); CREATININE 1.5 mg/dL (0.6-1.3); MAGNESIUM 2.2 mg/dL (1.8-2.4); POTASSIUM 4.2 mmol/L (3.5-5.1); TOTAL BILIRUBIN 0.3 mg/dL (<0.1-1.0); TOTAL PROTEIN 5.3 g/dL (6.4-8.2)
[2019-04-05 08:00] VITALS: BP 95/52
[2019-04-05 12:30] VITALS: BP 93/45
[2019-04-05 18:25] VITALS: BP 97/56
[2019-04-05 20:20] VITALS: BP 90/58
[2019-04-06] VITALS: BP 113/56
[2019-04-06 04:00] VITALS: BP 95/56
[2019-04-06 08:00] VITALS: BP 85/40
[2019-04-06 11:41] LABS: ABSOLUTE LYMPHOCYTES 0.6 thou/uL (0.8-5.3); ABSOLUTE MONOCYTES 0.2 thou/uL (0.0-1.2); ABSOLUTE NEUTROPHILS 3.5 thou/uL (1.6-8.1); BASOPHILS 0.7 %; EOSINOPHILS 0.1 %; HEMATOCRIT 25.9 % (37.0-47.0); HEMOGLOBIN 8.4 gm/dL (12.0-15.0); LYMPHOCYTES 14.5 %; MCH 31.3 pg (26.0-34.0); MCHC 32.6 g/dL (28.0-37.0); MCV 96.1 fL (80.0-100.0); MONOCYTES 5.4 %; NUCLEATED RBCS 0 /100WBC; PLATELET COUNT* 289 thou/uL (150-400); POLYS 79.3 %; RDW-CV 17.2 % (10.5-14.5); WBC 4.4 thou/uL (4.0-11.0)
[2019-04-06 11:52] LABS: ALBUMIN 1.5 g/dL (3.4-5.0); CALCIUM 8.5 mg/dL (8.5-10.1); CREATININE 1.6 mg/dL (0.6-1.3); POTASSIUM 4.3 mmol/L (3.5-5.1); TOTAL BILIRUBIN 0.3 mg/dL (<0.1-1.0); TOTAL PROTEIN 4.9 g/dL (6.4-8.2)
[2019-04-06 11:53] VITALS: BP 94/48
[2019-04-06 16:15] VITALS: BP 96/50
[2019-04-06 20:00] VITALS: BP 93/45
[2019-04-07] VITALS: BP 94/46
[2019-04-07 04:00] VITALS: BP 80/49
[2019-04-07 04:50] LABS: CALCIUM 8.7 mg/dL (8.5-10.1); CREATININE 1.5 mg/dL (0.6-1.3); POTASSIUM 4.9 mmol/L (3.5-5.1)
[2019-04-07 08:00] VITALS: BP 95/54
[2019-04-07 12:17] VITALS: BP 95/50
[2019-04-07 20:00] VITALS: BP 84/43
[2019-04-08] VITALS: BP 96/51
[2019-04-08 08:00] VITALS: BP 86/39
[2019-04-08 10:58] LABS: ABSOLUTE EOSINOPHILS 0.1 thou/uL (0.0-0.7); ABSOLUTE LYMPHOCYTES 1.3 thou/uL (0.8-5.3); ABSOLUTE MONOCYTES 0.6 thou/uL (0.0-1.2); ABSOLUTE NEUTROPHILS 3.6 thou/uL (1.6-8.1); BASOPHILS 0.8 %; EOSINOPHILS 2.4 %; HEMATOCRIT 27.8 % (37.0-47.0); HEMOGLOBIN 9.2 gm/dL (12.0-15.0); LYMPHOCYTES 22.7 %; MCH 31.7 pg (26.0-34.0); MCHC 33.1 g/dL (28.0-37.0); MCV 95.9 fL (80.0-100.0); MPV 8.2 fl. (7.2-11.1); NUCLEATED RBCS 0 /100WBC; PLATELET COUNT* 283 thou/uL (150-400); POLYS 64.1 %; RDW-CV 16.7 % (10.5-14.5); WBC 5.7 thou/uL (4.0-11.0)
[2019-04-08 11:06] LABS: CALCIUM 9.4 mg/dL (8.5-10.1); CREATININE 1.5 mg/dL (0.6-1.3); POTASSIUM 4.8 mmol/L (3.5-5.1)
[2019-04-08 12:21] VITALS: BP 109/65
[2019-04-08 16:31] VITALS: BP 113/62
[2019-04-08 18:10] LABS: URINE CREATININE 26.2 mg/dL (Not Estab.)
[2019-04-08 20:00] VITALS: BP 116/47
[2019-04-09] VITALS: BP 88/40
[2019-04-09 03:30] VITALS: BP 82/43
[2019-04-09 06:57] LABS: ABSOLUTE EOSINOPHILS 0.1 thou/uL (0.0-0.7); ABSOLUTE LYMPHOCYTES 1.1 thou/uL (0.8-5.3); ABSOLUTE MONOCYTES 0.4 thou/uL (0.0-1.2); ABSOLUTE NEUTROPHILS 3.1 thou/uL (1.6-8.1); BASOPHILS 0.9 %; EOSINOPHILS 2.4 %; HEMATOCRIT 24.6 % (37.0-47.0); HEMOGLOBIN 8.2 gm/dL (12.0-15.0); LYMPHOCYTES 23.4 %; MCH 31.8 pg (26.0-34.0); MCHC 33.2 g/dL (28.0-37.0); MCV 95.8 fL (80.0-100.0); NUCLEATED RBCS 0 /100WBC; PLATELET COUNT* 269 thou/uL (150-400); POLYS 64.3 %; RBC 2.57 mil/uL (4.20-5.00); RDW-CV 16.8 % (10.5-14.5); WBC 4.8 thou/uL (4.0-11.0)
[2019-04-09 07:05] LABS: CALCIUM 8.9 mg/dL (8.5-10.1); CREATININE 1.4 mg/dL (0.6-1.3); POTASSIUM 5.1 mmol/L (3.5-5.1)
[2019-04-09 11:45] VITALS: BP 84/48
[2019-04-09 16:02] VITALS: BP 95/50
--- NOTE | 2019-04-09 19:22 | CON ---
[address] [address] CONSULTATION Name: FLORY COPE Room: [address] IN M.R.#: [id number] Admission: 03/26/19 Attend Phys: Will Sosa MD Discharge: Date of : [birth year] Report #: [id number] THIS REPORT FOR: //name// CC: Rajeev Mueller DO Donaldmarla SHARP DATE OF SERVICE: 04/03/2019 REFERRING PHYSICIAN: Will Sosa MD REASON FOR CONSULTATION: Anemia. IMPRESSION: 1. Anemia of chronic disease without any history to suggest gastrointestinal blood loss. 2. History of complicated biliary tract disease requiring ERCP with stone extraction and biliary stent placement on 01/30/2019, followed by an open cholecystectomy on the 02/01. 3. Postoperative enterocutaneous fistula requiring wound VAC with incomplete resolution of the same. 4. Postoperative renal failure with need for temporary hemodialysis. The patient's renal function currently improving. 5. Metabolic encephalopathy, improving. 6. Atrial fibrillation with controlled ventricular response, the patient is not on anticoagulant. RECOMMENDATIONS: 1. We will proceed with upper endoscopy and an ERCP in 2 days' time to ensure there is nothing going on within her upper GI tract, premature anemia and to remove the biliary stent that was placed and any debris that may still be in the bile duct after it has been removed. This would need to be done to ensure that the stent is not get obstructed and cause life threatening infection in her bile duct and she is due to have this stent removed at this time. 2. We will reassess the patient tomorrow to ensure that her cardiopulmonary status is appropriate for these endoscopic evaluations. 3. We will also need to contact her son to let him know these recommendations regarding his mom's care. He was not in her room tonight, so I will have our nurse practitioner contact him by phone tomorrow regarding the same. HISTORY OF PRESENT ILLNESS: The patient is an 88-year-old white female who was admitted to hospital on ____ because of problems [place] [address] CONSULTATION Name: FLORY COPE Room: [address] IN [facility]#: [id number] Admission: 03/26/19 Attend Phys: Will Sosa MD Discharge: Date of : [birth year] Report #: [id number] rapid ventricular response and hypotension. She is not able to give much of any history whatsoever. She is extremely hard of hearing. We were asked to see her because of problem with anemia and the like. The patient cannot give any history whatsoever, but does not have any history of any GI bleeding per the nursing staff. I do not see any records regarding any previous endoscopic studies of her upper and lower GI tract in the past other than the fact she had an ERCP to remove multiple stones within the common bile duct and currently has a stent in place. We have been in the process of trying to get a hold of her to get this stent removed, but now that she is in the hospital, we will try and get this done while she is in the hospital. She underwent an ERCP on 01/30 followed by open cholecystectomy, which has been complicated by an enterocutaneous fistula. Surgery is on board regarding the same. ALLERGIES: None. HOME MEDICATIONS: She takes levothyroxine, Renagel, tamsulosin, fluconazole, prednisone, estradiol, fish oil, calcium, Lipitor, Prilosec and Lumigan eyedrops. PAST MEDICAL AND SURGICAL HISTORY: Remarkable for chronic atrial fibrillation, end-stage renal disease, requiring temporary hemodialysis, some problem with anemia, hypertension, osteoarthritis, hyperlipidemia, some problem with some mild dementia, diabetes. She had bilateral knee replacement, bilateral hip replacement. She had bowel surgery and bladder sling. SOCIAL HISTORY: Not known. PHYSICAL EXAMINATION: GENERAL: Revealed a very hard of hearing 88-year-old white female who is awake and alert, but not able to comprehend conversation. CARDIOPULMONARY: Revealed irregular rhythm. LUNGS: Clear. ABDOMEN: Soft and does have a wound draining liquid fluid from her GI tract out to a tube that is hooked up to a wound VAC. LABORATORY DATA: Her laboratory tests form the 2nd revealed a white count of 9.2, hemoglobin 10.3, platelet count 217,000, MCV is 95.1, RDW 16.3. Sodium is 136, potassium 4.7, chloride 100, bicarbonate is 28, BUN is 27, creatinine 3.2 for GFR of 14. Total bilirubin 0.5, alkaline phosphatase 112, AST 31, ALT 20. Her albumin is 2.1. DISCUSSION: At the present time, the [place] [address] CONSULTATION Name: FLORY COPE Room: M.218-P ADM IN M.R.#: [id number] Admission: 03/26/19 Attend Phys: Will Sosa MD Discharge: Date of : [birth year] Report #: [id number] candidate to undergo endoscopic evaluation. We will proceed with EGD and ERCP in a couple days' time and make further recommendations thereafter. <ELECTRONICALLY SIGNED> By: Phuc Leblanc DO 04/09/19 1922 03 2244Phuc Leblanc DO /nt
[2019-04-09 20:00] VITALS: BP 135/63
[2019-04-10] VITALS: BP 97/49
[2019-04-10 04:00] VITALS: BP 96/53
[2019-04-10 05:34] LABS: ABSOLUTE BASOPHILS 0.1 thou/uL (0.0-0.2); ABSOLUTE EOSINOPHILS 0.2 thou/uL (0.0-0.7); ABSOLUTE LYMPHOCYTES 1.3 thou/uL (0.8-5.3); ABSOLUTE MONOCYTES 0.5 thou/uL (0.0-1.2); ABSOLUTE NEUTROPHILS 2.3 thou/uL (1.6-8.1); BASOPHILS 1.2 %; EOSINOPHILS 3.7 %; HEMATOCRIT 25.4 % (37.0-47.0); HEMOGLOBIN 8.5 gm/dL (12.0-15.0); LYMPHOCYTES 30.6 %; MCH 32.4 pg (26.0-34.0); MCHC 33.6 g/dL (28.0-37.0); MCV 96.4 fL (80.0-100.0); MONOCYTES 10.8 %; MPV 8.3 fl. (7.2-11.1); NUCLEATED RBCS 0 /100WBC; PLATELET COUNT* 289 thou/uL (150-400); POLYS 53.7 %; RBC 2.63 mil/uL (4.20-5.00); RDW-CV 16.7 % (10.5-14.5); WBC 4.3 thou/uL (4.0-11.0)
[2019-04-10 05:42] LABS: CALCIUM 8.9 mg/dL (8.5-10.1); CREATININE 1.4 mg/dL (0.6-1.3); POTASSIUM 5.3 mmol/L (3.5-5.1)
[2019-04-10 08:00] VITALS: BP 89/56
[2019-04-10 11:46] VITALS: BP 82/52
[2019-04-10 15:30] VITALS: BP 102/46
[2019-04-10 16:04] LABS: URINE BILIRUBIN NEGATIVE (Negative); URINE BLOOD TRACE (Negative); URINE COLOR YELLOW; URINE GLUCOSE-RANDOM NEGATIVE (Negative); URINE KETONES NEGATIVE (Negative); URINE LEUKOCYTES 2+ (Negative); URINE NITRITE NEGATIVE (Negative); URINE PROTEIN NEGATIVE (Negative); URINE UROBILINOGEN 0.2 E.U./dl (0.2-1.0)
[2019-04-10 16:07] LABS: URINE CLARITY CLOUDY
[2019-04-10 16:16] LABS: BACTERIA >30 Many /HPF (None Seen); CASTS None Seen /LPF (None Seen); CRYSTALS None Seen /LPF (None Seen); SQUAMOUS 4-10 Moderate /LPF (0-3); URINE RBC 0-2 Rare /HPF (0-2); URINE WBC 6-15 Few /HPF (0-5)
[2019-04-10 20:00] VITALS: BP 97/50
[2019-04-11] VITALS: BP 115/66
[2019-04-11 04:00] VITALS: BP 90/57
[2019-04-11 04:29] LABS: ABSOLUTE BASOPHILS 0.1 thou/uL (0.0-0.2); ABSOLUTE EOSINOPHILS 0.1 thou/uL (0.0-0.7); ABSOLUTE LYMPHOCYTES 1.2 thou/uL (0.8-5.3); ABSOLUTE MONOCYTES 0.6 thou/uL (0.0-1.2); ABSOLUTE NEUTROPHILS 2.9 thou/uL (1.6-8.1); BASOPHILS 1.2 %; EOSINOPHILS 2.3 %; HEMOGLOBIN 8.6 gm/dL (12.0-15.0); LYMPHOCYTES 24.4 %; MCH 34.9 pg (26.0-34.0); MCV 96.9 fL (80.0-100.0); MPV 7.9 fl. (7.2-11.1); NUCLEATED RBCS 0 /100WBC; PLATELET COUNT* 302 thou/uL (150-400); POLYS 60.1 %; RBC 2.48 mil/uL (4.20-5.00); RDW-CV 16.9 % (10.5-14.5); WBC 4.8 thou/uL (4.0-11.0)
[2019-04-11 04:45] LABS: CALCIUM 8.8 mg/dL (8.5-10.1); CREATININE 1.4 mg/dL (0.6-1.3); MAGNESIUM 1.9 mg/dL (1.8-2.4); PHOSPHORUS* 4.4 mg/dL (2.5-4.9); POTASSIUM 4.7 mmol/L (3.5-5.1)
[2019-04-11 08:00] VITALS: BP 115/59
[2019-04-11 11:00] VITALS: BP 87/52
[2019-04-11 20:00] VITALS: BP 116/79
[2019-04-12 08:00] VITALS: BP 96/48
[2019-04-12 12:32] VITALS: BP 96/48
[2019-04-12] MEDS ORDERED: PROTONIX40 M2 PO (13:35)
[2019-04-12] MEDS ORDERED: ATIVAN0.5 M1 PO (13:36)
[2019-04-12] MEDS ORDERED: ZOFRAN4 MG PO (14:15)
[2019-04-12 14:21] VITALS: BP 96/48
[2019-04-12 14:48] VITALS: BP 96/48
== END 2019-04-12 14:30 | disposition hospice, inpatient (51) | DRG 871 ==
LOC: M.ERS 18:14 → M.TBA-ER 20:51 → M.2W 20:51
PROVIDERS: Emergency Medicine Emergency Medical Services; Family Medicine; Internal Medicine; Internal Medicine Gastroenterology; Internal Medicine Nephrology; Surgery; ADMIT Internal Medicine
PROC: 5A1D70Z Performance of Urinary Filtration, Intermittent, Less than 6 Hours Per Day (ICD-10-PCS; principal; 2019-03-28)
PROC: 5A1D70Z Performance of Urinary Filtration, Intermittent, Less than 6 Hours Per Day (ICD-10-PCS; 2019-03-30)
PROC: 0FPB8DZ Removal of Intraluminal Device from Hepatobiliary Duct, Via Natural or Artificial Opening Endoscopic (ICD-10-PCS; 2019-04-05)
PROC: 0FC98ZZ Extirpation of Matter from Common Bile Duct, Via Natural or Artificial Opening Endoscopic (ICD-10-PCS; 2019-04-05)
PROC: 0DJ08ZZ Inspection of Upper Intestinal Tract, Via Natural or Artificial Opening Endoscopic (ICD-10-PCS; 2019-04-05)
PROC: 0JPT3XZ Removal of Tunneled Vascular Access Device from Trunk Subcutaneous Tissue and Fascia, Percutaneous Approach (ICD-10-PCS; 2019-04-10)
DX: A41.9 Sepsis, unspecified organism (principal); G93.41 Metabolic encephalopathy; N18.6 End stage renal disease; N17.0 Acute kidney failure with tubular necrosis; E43 Unspecified severe protein-calorie malnutrition; K63.2 Fistula of intestine; N39.0 Urinary tract infection, site not specified; I13.2 Hypertensive heart and chronic kidney disease with heart failure and with stage 5 chronic kidney disease, or end stage renal disease; I48.20 Chronic atrial fibrillation, unspecified; Z16.12 Extended spectrum beta lactamase (ESBL) resistance; I50.32 Chronic diastolic (congestive) heart failure; D68.59 Other primary thrombophilia; N18.4 Chronic kidney disease, stage 4 (severe); Z96.653 Presence of artificial knee joint, bilateral; Z96.643 Presence of artificial hip joint, bilateral; E11.22 Type 2 diabetes mellitus with diabetic chronic kidney disease; Z99.2 Dependence on renal dialysis; M19.90 Unspecified osteoarthritis, unspecified site; E03.9 Hypothyroidism, unspecified; E78.5 Hyperlipidemia, unspecified; K59.09 Other constipation; D63.1 Anemia in chronic kidney disease; E83.39 Other disorders of phosphorus metabolism; R62.7 Adult failure to thrive; K21.9 Gastro-esophageal reflux disease without esophagitis; Z87.440 Personal history of urinary (tract) infections; Z90.49 Acquired absence of other specified parts of digestive tract; Z79.899 Other long term (current) drug therapy; Z79.4 Long term (current) use of insulin; Z79.01 Long term (current) use of anticoagulants; Z68.32 Body mass index [BMI] 32.0-32.9, adult; Z66 Do not resuscitate; Z51.5 Encounter for palliative care

== ENCOUNTER → 2019-03-26 | Outpatient (CLI) | payer MEDICARE, BC ==
[~2019-03-26] MED LIST changes: +DIFLUCAN100 MG PO; +KEFLEX500 M1 PO; +PREDNISONE 10 M10 M1 PO; +RENAGEL800 MG PO; +VITAMIN B-121000 MC2 SUBLING
== END ==
LOC: M.WC 06:46
DX: K63.2 Fistula of intestine (principal); R21 Rash and other nonspecific skin eruption; E78.5 Hyperlipidemia, unspecified; I11.0 Hypertensive heart disease with heart failure; I50.9 Heart failure, unspecified; I48.91 Unspecified atrial fibrillation; K21.9 Gastro-esophageal reflux disease without esophagitis; Z90.49 Acquired absence of other specified parts of digestive tract; Z96.653 Presence of artificial knee joint, bilateral; Z96.643 Presence of artificial hip joint, bilateral